=== PATIENT | male | born 1935 | race Caucasian/White ===

== ENCOUNTER 2016-09-03 15:48 | Inpatient (IN) | payer MEDICARE ==
[~2016-09-03] VITALS: Ht 177.8 cm; Wt 91.7 kg
[~2016-09-03 15:48] MED LIST: ALBU2.5V4 INHALATION; GABA-502 PO; METO50TA3 PO; MULT-1073 PO; MYCO EXTERNAL; QUE9 PO; TIOT18CA3 IH; WARF6TAB6 PO; [UNRECOGNIZED DRUG - CODE] PO
[2016-09-03 15:51] VITALS: BP 109/74; PULSE 111; RESP 18; O2SAT 98
--- NOTE | 2016-09-03 17:08 | ED.REPORT ---
HPI-General Illness Date of Service Sep 03, 2016 ED Provider: Irineo Ely MD The patient is a 81 year old male with an extensive medical history including COPD, SBO, essential tremor, CAD, DM, CKD, atrial fibrillation, and colon cancer s/p right colectomy with ileostomy who presents to the ED with abdominal pain at his ileostomy site onset 1.5 weeks ago. The patient also reports bilateral flank pain, loss of appetite, nausea, and recent weight loss. He denies hematochezia, reduced stooling, fever, chills, shortness of breath, extremity swelling, vomiting, or other symptoms. The patient was seen at the [facility] yesterday and at the [facility] today, where was found to have an elevated WBC with tachycardia (110s). The patient is on home O2. Nursing Notes Stated Complaint: ABDOMINAL/BACK PAIN-SENT BY [facility] Chief Complaint: Male Abdominal Pain Nursing Notes Reviewed: Yes Allergies: Coded Allergies: No Known Drug Allergies (Verified Allergy, Unknown, 09/03/16) Scheduled Albuterol Neb Soln (Albuterol Neb Soln) 2.5 Mg/3 Ml Vial.neb 2.5 MG INHALATION BID Cholestyramine (Cholestyramine Packet) 4 Gm Packet 2 GM PO TID Gabapentin (Gabapentin) 300 Mg Capsule 600 MG PO BID Metoprolol Tartrate (Metoprolol Tartrate) 50 Mg Tablet 50 MG PO DAILY Multivits-Min/FA/Lycopene/Lut (Centrum Silver Tablet) 1 Each Tablet 1 EACH PO DAILY Theophylline Anhydrous ER (Theophylline Anhydrous ER) 200 Mg Tab.er.12h 200 MG PO DAILY Tiotropium [place] (Spiriva) 18 Mcg Cap.w.dev 18 MCG IH DAILY Warfarin Sodium (Warfarin Sodium) 6 Mg Tablet 6 MG PO DAILY Miscellaneous Medications Nystatin (Nystatin) 20 Applic/15 Gm Oint 30 APPLIC EXT General Time Seen by MD: 17:01 Chief Complaint Abdominal pain Hx Obtained From: Patient Arrived By: Walk-in Sudden in Onset?: No Onset Occurred: 1 week ago Symptom Duration: Since onset Location: : Abdomen: Back Quality: Painful Severity: Current: Moderate Severity: Maximum: Moderate Pertinent Negative: Relieved by nothing Context Related History: Reports COPD, Reports Coronary artery disease, Reports Diabetes mellitus Recent Healthcare: Recent doctor visit Past Medical History Past Medical History Notes: PCP: Dr. Christopher Teague CODE STATUS: Would like resuscitation but no life support. Past Medical History COPD on home oxygen Small bowel obstruction 2013 Essential tremor History of colon cancer s/p right colectomy with ileostomy placement Paroxysmal atrial fibrillation Diabetes mellitus type 2 Chronic kidney disease stage III Reports: Asthma, COPD, Coronary artery disease Past Surgical History Colectomy for colon cancer with loop ileostomy 4x Bypass Reports: Appendectomy, CABG Family History Negative for colon cancer Smoking History Former Smoker Social History Drug Use: Denies drug use Other Social History: Good social support, Local resident Ambulatory Status Independent Review of Systems + Loss of appetite - Reduced stooling Full Review of Systems Constitutional: Reports: Recent wt loss, Denies: Chills, Fever Respiratory: Denies: Non-productive cough, Shortness of breath GI: Reports: Abdominal pain, Nausea, Denies: Hematochezia, Vomiting Male: Reports Flank pain (Bilateral) Musculoskeletal: Denies: Extremity swelling Complete sys rev & neg: except as marked. Physical Exam Vital Signs Vital Signs Date Time Temp Pulse Resp B/P Pulse Ox O2 Delivery O2 Flow Rate FiO2 09/03/16 18:13 85 18 145/99 99 Room Air 09/03/16 15:51 36.6 111 18 109/74 98 Nasal Cannula 3 Initial VS: Reviewed Head / Eyes: Atraumatic, Normocephalic Neck: Supple, Full range of motion Skin: Warm, Dry, No cyanosis Psychiatric: Mood/affect normal, Behavior normal, Normal thought content General/Constitutional: Awake, Alert ENT: Airway patent, Mucous membranes moist Abdomen: Soft Tenderness/Guarding/Rebound: Positive: Tender RUQ... (Worst), Tender diffuse, Negative: Tender epigastric Normal stool in ostomy Back: Atraumatic Flank / Spine / Paraspinal: Positive: Flank tender R Neurologic: Oriented X3, Speech NL Movement Abnormality: Positive: Tremor Interpretation & Diagnostics Lab Results Interpretation Result Diagram: 09/03/16 1710 09/03/16 1710 Test 09/03/16 17:08 09/03/16 17:10 Lactic Acid Level 1.5mmol/L (0.4-2.0) White Blood Count 14.3th/mm3 (3.8-10.1) Red Blood Count 4.09mil/mm3 (4.40-5.80) Hemoglobin 12.8g/dL (13.8-17.2) Hematocrit 38.9% (41.0-50.0) Mean Corpuscular Volume 95.1fL (81-100) Mean Corpuscular Hemoglobin 31.3pg (27.0-35.0) Mean Corpuscular Hemoglobin Concent 32.9% (32.0-37.0) Red Cell Distribution Width 12.6% (12.3-15.4) Platelet Count 218bil/L (150-400) Neutrophils (%) (Auto) 75.7% (40-74) Lymphocytes (%) (Auto) 10.1% (14-46) Monocytes (%) (Auto) 13.3% (4-12) Eosinophils (%) (Auto) 0.5% (0-5) Basophils (%) (Auto) 0.1% (0-3) Prothrombin Time 64.2sec (8.1-12.5) Prothromb Time International Ratio 5.79ratio Sodium Level 138mEq/L (134-144) Potassium Level 3.7mEq/L (3.5-5.2) Chloride Level 98mEq/L (97-108) Carbon Dioxide Level 22mmol/L (18-29) Blood Urea Nitrogen 29mg/dL (8-27) Creatinine 2.12mg/dL (0.76-1.27) Estimat Glomerular Filtration Rate 32mL/min (>59) Glucose Level 133mg/dL (60-99) Calcium Level 9.9mg/dL (8.5-10.1) Magnesium Level 1.7mg/dL (1.6-2.6) Total Bilirubin 1.2mg/dL (0.0-1.2) Aspartate Amino Transf (AST/SGOT) 20U/L (0-50) Alanine Aminotransferase (ALT/SGPT) 34U/L (0-44) Alkaline Phosphatase 83U/L (25-160) Total Protein 8.0g/dL (6.4-8.4) Albumin 3.3g/dL (3.4-5.0) Lipase 27U/L (13-60) Re-Eval/Medical Decision Med Decision/Clinical Course In summary, 81-year-old male with a complex past medical history including COPD, small bowel obstruction, coronary disease, atrial fibrillation, and colon cancer status post right-sided colectomy with ileostomy presenting to the ED for evaluation of abdominal pain over the past week. Unclear whether or not his right sided back/CVA pain is the same as his abdominal pain, however he has diffuse tenderness throughout his abdomen, worst in the right lower quadrant, around his ileostomy, and in the right flank. Obvious concern for some intra-abdominal pathology/abscess/small bowel obstruction etc. Labs were drawn and a CT scan was ordered. Patient was signed out to Dr. Pederson at change of shift with these studies and reevaluation pending. Discussed the plan with the patient, who is in agreement and had no further questions. Source of Hx: Old records Time of Eval: 17:45 Discharge & Departure Shift Change Sign-Out Patient Care Transferred: Yes (Dr. Pederson) Discussed Complaint(s): Yes Laboratory Evaluation: Lab evaluation discussed Imaging Studies: Ordered, not yet done Response to Therapy: Improved Primary Impression: Abdominal pain Referrals: Christopher Teague DO (PCP) Care Transferred to: Dr. Pederson Care Transferred at: 18:20 Scribe Attestation Portions of this note were transcribed by Aye Roman. I, Dr. Ely, personally performed the history, physical exam, and medical decision-making; I reviewed and confirmed the accuracy of the information in the transcribed note. Signed by: Diana Dobbs, 09/03/2016, 18:35 copies to: Christopher Teague William B MD Sep 03, 2016 17:08 AYE ROMAN Sep 03, 2016 17:14
[2016-09-03 17:23] LABS: BASOPHILS % (AUTO) 0.1 % (0-3); EOSINOPHILS % (AUTO) 0.5 % (0-5); MONOCYTES % (AUTO) 13.3 % (4-12); Mean Corpuscular Hemoglobin 31.3 pg (27.0-35.0); Mean Corpuscular Volume 95.1 fL (81-100); NEUTROPHILS % (AUTO) 75.7 % (40-74); Platelet Count 218 bil/L (150-400)
[2016-09-03 17:49] LABS: Magnesium 1.7 mg/dL (1.6-2.6)
[2016-09-03 17:55] LABS: INR 5.79 ratio
[2016-09-03 18:13] VITALS: BP 145/99; PULSE 85; RESP 18; O2SAT 99
--- NOTE | 2016-09-03 19:15 | DRSVH ---
PROCEDURE: CT ABDOMEN AND PELVIS WITH CONTRAST ([id number]) INDICATIONS: abdominal pain, hx of ileostomy TECHNIQUE: After the administration of intravenous contrast, 5 mm thick sections acquired from the diaphragm to the symphysis. 5 mm coronal and sagittal reformats were acquired. For radiation dose reduction, the following was used: automated exposure control, adjustment of mA and/or kV according to patient siz e. COMPARISON: [facility], CT, CT ABD PELVIS WO CON, 09/30/2015, 16:06. FINDINGS: Image quality: Excellent. ABDOMEN: Lung bases: Lung bases are clear except for mild interstitial prominence and suspected emphysematous change. Heart size is normal. Solid organs: Liver and spleen are normal in size and enhancement. Gallbladder appears free of infl ammation but there is a small gas bubble within the gallbladder lumen and slight pneumobilia elsewher e. Multiple surgical clips are near the pancreatic head area. Biliary system is non dilated. Pancr eas enhances normally. No adrenal nodules. Kidneys demonstrate normal size but asymmetric enhanceme nt (mildly reduced on the right), without left-sided hydronephrosis. There is, however, a right-sided hydronephrosis and hydroureter that extends inferiorly into the pelvis, where an impacted 4 mm calcu neisha is present (series 2 image 66) measuring 325 Hounsfield units this is located approximately 5 cm above the bladder ureteral insertion. There is mild perinephric and periureteral edema and mild urot helial enhancement involving the kidney and ureter on the right. Peritoneum and bowel: Bowel loops demonstrate normal wall thickness and caliber. No free fluid or a ir. Nodes and vessels: No retroperitoneal or mesenteric adenopathy by size criteria. Aorta and inferior vena cava are normal in size. Miscellaneous: No ventral hernias. PELVIS: Genitourinary: Bladder wall thickness is normal. Miscellaneous: No inguinal hernias or adenopathy. Ileostomy right lower quadrant. Bones: No suspicious bony lesions. No vertebral body compression fractures. IMPRESSION: High-grade distal right ureteral obstruction by a 4 mm stone producing mild to moderate hydronephrosis and hydroureter on the right, with urothelial enhancement and mild thickening and also hypo-enhancement to a mild degree of the right kidney. Urology consultation is recommended. The ca lculus present measures approximately 325 Hounsfield units. Right lower quadrant ileostomy, no evidence of intestinal obstruction or perforation. Mild pneumobil ia, likely related to prior surgery near the pancreatic head. Suspect underlying emphysema from the appearance of the small portion of the lower lobes included on this study. Dictated by: Hermelindo Stein M.D. on 09/03/2016 at 19:05 Approved by: Hermelindo Stein M.D. on 09/03/2016 at 19:13
[2016-09-03] MEDS ORDERED: 0.9% Sodium Chloride 500 ML IV ONE (19:25)
[2016-09-03 20:02] LABS: APPEARANCE,URINE CLEAR (CLEAR,HAZY); COLOR,URINE DARK YELLOW (YELLOW); OCCULT BLOOD,URINE SMALL (NEGATIVE); UROBILINOGEN,URINE NORMAL (NORMAL)
[2016-09-03 20:20] VITALS: BP 152/92; PULSE 80; RESP 21
[2016-09-03] MEDS: Ondansetron 2 mg/mL 2 mL Inj IVPUSH PRN (20:28)
[2016-09-03] MEDS ORDERED: cefTRIAXone Inj 2,000 MG in Dextrose 5% Minibag Plus 50 ML IV ONE (20:50)
[2016-09-03] MEDS ORDERED: Phytonadione (Adult) 10 MG in Dextrose 5%-Pha MIX 50 ML IV ONE (21:30)
[2016-09-03] MEDS ORDERED: 0.9% Sodium Chloride 100 ML ONE (21:32)
--- NOTE | 2016-09-03 21:45 | DRSVH ---
PROCEDURE: X-RAY CHEST, TWO VIEWS ([id number]) INDICATIONS: lung finding on ct TECHNIQUE: 2 views of the chest were acquired. COMPARISON: [facility], CR, CHEST 1VW (PORTABLE), 05/04/2013, 16:23. [facility], CR, XR CHEST 2VW, 04/28/2016, 11:09. [facility], CT, CT ABD PELVIS W CON, 09/03/2016 , 18:26. FINDINGS: Surgical changes and devices: Sternotomy wires, presumed prior CABG. Lungs and pleura: No pleural effusions or pneumothorax. Lungs are abnormal with a chronic interstit ial prominence and what appears to be a small degree of fibrotic change at each lung base. Mediastinum: Mediastinal contours are normal. Heart size is normal. Bones and chest wall: No suspicious bony abnormalities. Soft tissues appear unremarkable. IMPRESSION: Prior CABG, sternotomy wires, mild fibrotic change at each lung base. No underlying acu te pneumonia or neoplasm is found. Dictated by: Hermelindo Stein M.D. on 09/03/2016 at 21:41 Approved by: Hermelindo Stein M.D. on 09/03/2016 at 21:44
[2016-09-03] MEDS ORDERED: Polyethylene Glycol (PEG) 17 Gm Powder PO PRN (22:50)
[2016-09-03] MEDS ORDERED: Alum-Mag Hydrox-Simeth 30 mL Suspension PO PRN (22:50)
--- NOTE | 2016-09-03 23:01 | PCM.HPMED ---
Subjective Date of Service Sep 03, 2016 Primary Provider: Admitting Physician: Ricardo Carson MD Primary Care Physician: Jonny Attending Physician: Ricardo Carson MD Admit Status: From the Emergency Department Chief Complaint: Right back pain radiating to right inguinal area History of Present Illness: This is a 81-year-old male with past medical history significant for COPD on 3 L O2 24 hours per day, benign essential tremor, coronary artery disease s/p CABGx4, CKD stage III, atrial fibrillation on chronic anticoagulation with Coumadin, and colon cancer in remission status post right colectomy with ileostomy who presents with right sided back pain. He states the pain began approximately 1-1/2 weeks ago and radiates to his right inguinal area. The pain is described as sharp and throbbing. It is constant. It has been progressive worsening over last 2 days. He also describes some tenderness at his ileostomy site but denies any increased ostomy output or change in stool consistency. He also describes decreased appetite for one week. He has cough but no increase in sputum from baseline. He describes color of sputum as yellow. There is increased urinary frequency and some hesitancy. He denies any dysuria or hematuria, fevers, chills, shortness of breath, nausea, vomiting , chest pain or pressure. In the emergency department initial vitals were 36.6 Celsius, pulse 111, respiratory rate 18, blood pressure 109/74, satting 98% on 3 L by nasal cannula. Initial laboratory value showed WBC 14.3 with left shift, hemoglobin 12.8, hematocrit 30.9, platelets 218. BUN 29, creatinine 2.12, glucose 133, PT 64.2, INR 5.79. Lactic acid 1.5. Urinalysis showed small occult blood, no nitrates, no leukocyte esterase, no bacteria. Blood cultures are pending. CT of the abdomen and pelvis with contrast shows "high-grade distal right ureteral obstruction by 4 mm stone producing mild to moderate hydronephrosis and hydroureter on the right, with urothelial enhancement and mild thickening and also hypoenhancement to a mild degree of the right kidney. Right lower quadrant ileostomy evidence of intestinal obstruction perforation. Mild pneumobilia likely related to prior surgery near the pancreatic head." In the emergency department he was given FFP to reverse INR, ceftriaxone and a bolus of normal saline. Urology was contacted and recommended be NPO after midnight and be started on ceftriaxone. They will evaluate patient in the morning. Review of Systems: A comprehensive review of systems was conducted with the patient and found to be negative except as above in the History of Present Illness. Allergies Coded Allergies: No Known Drug Allergies (Verified Allergy, Unknown, 09/03/16) Home Medications albuterol sulfate 2.5 mg/3 mL (0.083 %) solution for nebulization 2.5 mg/3 mL ( 0.083 %) albuterol sulfate HFA 90 mcg/Actuation Aerosol Inhaler 90 mcg inhale 2 puff by INHALATION route every 4 - 6 hours as needed . Blood Glucose Monitoring kit Use to check your blood sugar daily Calcium 500 + D 500 mg (1,250 mg)-200 unit tablet 500 mg calcium (1,250 mg)-200 unit cholestyramine (with sugar) 4 gram oral powder 4 gram take 0.5-1 packet every 4- 6 hours with non-carbonated beverage. CONTOUR TEST STRIPS 100'S USE TO TEST BLOOD SUGAR TWICE DAILY gabapentin 600 mg tablet 600 mg take 1 tablet by oral route 3 times every day glimepiride 4 mg tablet 4 mg take 1 tablet by oral route every day metoprolol tartrate 50 mg tablet 50 mg TAKE 1 TABLET BY ORAL ROUTE TWICE DAILY Nitrostat 0.4 mg sublingual tablet 0.4 mg nystatin 100,000 unit/gram topical cream 100,000 unit/gram apply by topical route 3 times every day to the affected area(s) pantoprazole 20 mg tablet,delayed release 20 mg take 1 tablet by oral route every day Probiotic 10 billion cell capsule 10 billion cell Take 1 capsule 3 times a day promethazine 25 mg tablet 25 mg take 1 tablet by oral route every 4 - 6 hours as needed Spiriva with HandiHaler 18 mcg & inhalation capsules 18 mcg inhale 1 capsule ( 18MCG) by inhalation route every day . Symbicort 80 mcg-4.5 mcg/actuation HFA aerosol inhaler 80 mcg-4.5 mcg/actuation inhale 2 puff by inhalation route 2 times every day in the morning and evening Vitamin B-12 1,000 mcg tablet 1,000 mcg ascorbic acid 1,000 mg tablet 1,000 mg cholecalciferol (vitamin D3) 1,000 unit tablet 1,000 unit warfarin 2 mg tablet 2 mg take 3 tablets (6mg) by oral route every day except take 4 tablets (8mg) every Tuesday, and Tuesday PMH COPD on 3 L of oxygen as per day Small bowel obstruction in May 2013 Essential tremor Colon cancer in remission status post right colectomy with ileostomy placement 5 years ago Proximal atrial fibrillation on chronic anticoagulation with warfarin Diabetes mellitus type II Chronic kidney disease stage III COPD Coronary artery disease status post or weight bypass Hypertension Obstructive sleep apnea Surgical History Colectomy with loop ileostomy Four-way CABG in 1987 Appendectomy in 1950 Family History Mom had coronary artery disease. Dad unknown health issues.. Social History Hx Alcohol Use: No Hx Substance Use: No Hx Tobacco Use: Yes (quit 7 years ago but used to smoke 2-3 ppd x 62 yrs) Smoking Status: Former Smoker Additional Information Patient and live in modular home. Exam Vital Signs Vital Sign - Last Date Time Temp Pulse Resp B/P Pulse Ox O2 Delivery O2 Flow Rate FiO2 09/03/16 20:20 36.9 80 21 152/92 Nasal Cannula 3 09/03/16 18:13 99 Exam General: No acute distress, appropriately interactive HEENT: Normocephalic, atraumatic. External ears without defect. Pupils equal, round, and reactive to light and accommodation. Anicteric sclerae, moist conjunctivae, and no lid lag. Oropharynx free of erythema and cobble stoning with moist mucosa. Neck: Supple with full range of motion. No jugular venous distension. No bruits. No lymphadenopathy or thyromegaly. Cardiovascular: Regular rate and rhythm with no murmurs, rubs, or gallops appreciated Pulmonary: Crackles present at bases of lungs bilaterally. No wheezes or rhonchi. Normal respiratory effort with no use of accessory muscles. Abdomen: Bowel tones present. Mild tenderness around ileostomy site. Ileostomy site covered and there is no surrounding erythema. No hepatosplenomegaly or masses appreciated. : There is tenderness to palpation of right costovertebral angle. Extremities: Trace edema bilaterally lower extremities. Skin: Normal temperature, turgor, and texture; no rash, ulcers, or subcutaneous nodules appreciated. Neurological: Cranial nerves grossly intact. Psychiatric: Normal mood and affect. Alert and oriented to person, place, and time. Lab and Diagnostics Result Diagram: 09/03/16 17109/03/16 171 X-Rays, CTs and MRIs CT of the abdomen and pelvis with contrast 09/03/2016: IMPRESSION: High-grade distal right ureteral obstruction by a 4 mm stone producing mild to moderate hydronephrosis and hydroureter on the right, with urothelial enhancement and mild thickening and also hypo-enhancement to a mild degree of the right kidney. Urology consultation is recommended. The calculus present measures approximately 325 Hounsfield units. Right lower quadrant ileostomy, no evidence of intestinal obstruction or perforation. Mild pneumobilia, likely related to prior surgery near the pancreatic head. Suspect underlying emphysema from the appearance of the small portion of the lower lobes included on this study. Dictated by: Hermelindo Stein M.D. on 09/03/2016 at 19:05 Chest x-ray on 09/03/2016: IMPRESSION: Prior CABG, sternotomy wires, mild fibrotic change at each lung base. No underlying acute pneumonia or neoplasm is found. Dictated by: Hermelindo Stein M.D. on 09/03/2016 at 21:41 Assessment & Plan This is a 81-year-old male with history significant for COPD on 3l home oxygen, CAD, atrial fibrillation, CKD stage III, and colon cancer in remission s/p right colectomy with ileostomy who presents with right costovertebral angle pain that radiates the inguinal area. CT scan in the emergency department showed a high-grade distal right ureteral obstruction by 4 mm stone producing mild to moderate hydronephrosis and hydroureter on the right. In the emergency department Dr. Peguero of urology was contacted and stated that he will evaluate patient in morning. He asked for ceftriaxone to be started and keep the patient NPO after midnight. Right high-grade distal right ureteral obstruction by 4 mm stone with hydronephrosis, present admission, ongoing: -Patient will be kept nothing by mouth after midnight per Dr. Peguero -Urology will evaluate in the morning -Normal saline at 100 mL per hour -Ceftriaxone started. -Blood cultures pending Elevated INR, present on admission, ongoing: -On admit PT 64.2 and INR 5.79. -Fresh frozen plasma given in emergency department -We will repeat PT/INR in a.m. and consider giving additional FFP if elevated. -Day team will need to clarify goals of urology concerning INR. -CBC in a.m. Acute kidney injury on chronic kidney disease, present admission, ongoing: -BUN and creatinine on 10/08/2015 was 16 and 1.69 respectively. On admit today BUN 29 and creatinine 2.12 -This is likely secondary to obstructing stone. Patient also received IV contrast due to imaging as well. -Normal saline at 100 mL per hour -CMP in a.m. Diabetes mellitus type II, present admission, stable: -Glucose on admission 133. -A1c pending. -We will hold home medications for now. -Humalog low-dose correctional added. COPD, present admission, ongoing: -Continue on O2 overnight, 3 L. -Continue on albuterol, Symbicort, Spiriva. Ileostomy tenderness, present on admission, ongoing: -No increased ostomy output or change in consistency of stool. -Continue to follow in a.m. -Continue cholestyramine Atrial fibrillation on chronic anti-coagulation, present on admission, ongoing: -Warfarin has been stopped due to elevated INR. -Continue metoprolol tartrate. Coronary disease status post CABG, present on admission, ongoing: -Patient is an beta jennifer. -Consider MARIAH inhibitor and statin as an outpatient. Med req not yet complete by nursing. Will leave for day to complete. DVT prophylaxis with SCDs. Patient's INR is currently 5.79. Patient is admitted under inpatient status with expected length of stay greater than 2 midnights due to severity of presenting symptoms, risk of adverse event, and complexity of treatment plan. Pain Evaluation: Adequate Pain Control Resuscitation Status: CPR: Attempt Resuscitation Attending Statement The patient was seen and examined together with Dr. Lipscomb on 09/03 and I agree with the history, exam and plan as outlined in the note above. Fer Lipscomb DO Sep 03, 2016 23:01 Ricardo Carson MD Sep 04, 2016 03:47
[2016-09-03 23:45] VITALS: BP 185/81; PULSE 86; RESP 24; O2SAT 99
[2016-09-04] VITALS (11 sets, daily range): BP systolic 133–156; BP diastolic 72–80; PULSE 48–84; RESP 18–24; O2SAT 97–99
[2016-09-04] MEDS: Ondansetron 2 mg/mL 2 mL Inj IVPUSH PRN ×2 (00:22→20:05)
--- NOTE | 2016-09-04 01:40 | NUR ---
ADMIT NOTE Pt arrived to [facility] 3029 approx 2320. Pt alert and oriented. Pt placed on remote telemetry. Pt aware on NPO status, for possible procedure, no definite orders for procedure at this time. Pt has dull ache at stoma site to right side of back. Pt on 3L oxygen via [place], humidified and oxygen extension tubing provided. Pt uses 3L at home. Pt states "I haven't used my CPAP in about a year, because it smells like burnt wires." Pt placed on CPOx. VS obtained. 2 units of FFP administered. Continue to monitor. Pt has colostomy, emptied upon arrival to [facility] [place] [facility]. Ostomy cart outside of room. Call light in reach. Bed alarm on. Intentional rounding
[2016-09-04] MEDS ORDERED: Glucose 40% Oral Gel 15 Gm Tube PO PRN (01:55)
--- NOTE | 2016-09-04 01:56 | NUR ---
MED REC NOT COMPLETED Pt did not bring in list of current medications. Pt unable to recall medication, but states he takes "a pill for my diabetes." Pt also states "yes" to using nebulizers and inhalers at home. Request will be sent to pts pharmacy in am for current list.
[2016-09-04] MEDS ORDERED: Dextrose 10% 250 ML IV PRN (02:00)
[2016-09-04] MEDS: 0.9% Sodium Chloride 1,000 ML IV SCH ×3 (02:14→21:47)
[2016-09-04 06:18] LABS: BASOPHILS % (AUTO) 0.2 % (0-3); EOSINOPHILS % (AUTO) 2.1 % (0-5); Mean Corpuscular Hemoglobin 30.8 pg (27.0-35.0); Mean Corpuscular Volume 96.5 fL (81-100); Platelet Count 207 bil/L (150-400)
[2016-09-04 06:30] LABS: INR 1.38 ratio
[2016-09-04] MEDS: Insulin LISPRO 300 Unit/3 mL Inj SUBQ SCH ×4 (07:41→22:00)
[2016-09-04] MEDS: HYDROcodone-APAP 5-325 mg Tablet PO PRN ×2 (07:41→17:06)
[2016-09-04] MEDS ORDERED: PANT20TA2 PO (09:46)
[2016-09-04] MEDS ORDERED: POTA99TA7 PO (09:46)
[2016-09-04] MEDS ORDERED: CHOL100045 PO (09:46)
[2016-09-04] MEDS ORDERED: MONT10TA23 PO (09:46)
[2016-09-04] MEDS ORDERED: CYAN500L4 PO (09:46)
[2016-09-04] MEDS ORDERED: ASCO-294 PO (09:46)
[2016-09-04] MEDS ORDERED: PRED1DRO BOTH_EYES (09:46)
[2016-09-04] MEDS ORDERED: OFLO5DRO5 RIGHT_EYE (09:46)
[2016-09-04] MEDS ORDERED: [UNRECOGNIZED DRUG - CODE] PO (09:46)
[2016-09-04] MEDS ORDERED: GLIM4TAB2 PO (09:46)
[2016-09-04] MEDS ORDERED: KETO5DRO80 BOTH_EYES (09:46)
--- NOTE | 2016-09-04 10:33 | NUR ---
Social Work-initial assessment: Data:See initial assessment. Pt is a 81 y/o male who was admitted on 09/03/16 for RT ureteral stone per H&P. Pt's insurance is [employer] and PCP is Dr. Garcia at [facility]. EMR reviewed. SW met with pt at bedside to discuss discharge planning, SW role explained. Pt is alert and oriented x3. Pt resides at home with his in [place] where he remains independent with basic ADls. Pt and live in single level mobile home with ramp to enter. Pt uses a cane outside of the home and drives. Pt has no HH or SNF history. Pt lentz no senior living care or VA benefits. SW discussed DPOA/ advanced directive, pt confirms they have not completed this, SW encouraged a copy to be brought in. Pt is on O2 at home through [employer]. Per MD in morning rounds, pt to go to the OR today. SW to await MD orders for needs. SW provided phone number and plan on white board in room. SW will continue to follow. Assessment:pt who is independent at baseline. Plan:pt to likely discharge home when medically stable. SW to follow for needs and await MD orders. SW will continue to follow. HARDEEP Maloney Addendum: 09/04/16 at 1037 by WOOD COLEMAN Amended: Links added.
[2016-09-04] MEDS ORDERED: WARF2TAB7 PO (11:06)
[2016-09-04] MEDS ORDERED: ALBU2.5V4 INHALATION (11:06)
[2016-09-04] MEDS ORDERED: SYMINH INHALATION (11:06)
[2016-09-04] MEDS ORDERED: TIOT18CA3 IH (11:06)
[2016-09-04] MEDS ORDERED: PRIM50TA PO (11:06)
--- NOTE | 2016-09-04 12:13 | NUR ---
Case Management- IMM explained and signed. Original placed in chart. Copy given to patient. Yanely IRELAND/YUDELKA
[2016-09-04] MEDS: HYDROmorphone 0.5 mg/0.5 mL iSecure Syringe IVPUSH PRN ×2 (14:26→22:19)
--- NOTE | 2016-09-04 15:08 | CONS ---
[address] [address] CONSULTATION REPORT PATIENT: DIAZ YOU : 1935 MR#: [id number] ADMIT: 09/03/2016 JOB ID: [id number] DATE OF SERVICE: 09/04/2016 CHIEF COMPLAINT: Right back flank and groin pain, right ureteral calculus, right hydronephrosis. HISTORY OF PRESENT ILLNESS: I was asked by ED Dr. Onelia Pederson to evaluate this 81-year-old male for right back, flank and groin pain, right ureteral calculus and right hydronephrosis. The patient states he started having right back pain radiating to the right flank and right groin. The patient stated he started having right back pain radiating to the flank and groin about 1-1/2 weeks ago with pain worsening over the last two days. The patient reports occasional nausea with no vomiting. The patient states he has not been having any fever and again no vomiting. The patient reports no dysuria, no gross hematuria, urinary frequency every 1 hour, urinary urgency. The patient reports no prior history of nephrolithiasis. The patient presented to the emergency department yesterday afternoon and had a CT scan of the abdomen and pelvis with IV contrast last night showing [id number] right hydroureteronephrosis down to a 4 mm right distal ureteral calculus, mild right perinephric and periureteral edema, mild urothelial enhancement and thickening in the right kidney and right ureter and no lymphadenopathy. The patient was found to have mildly elevated white blood cell count of 14.3, an elevated creatinine of 2.12, also elevated PT 64.2, and elevated INRs of 5.79. The patient was given vitamin K and FFP last night. The patient was admitted by hospitalist, Dr. Ricardo Carson last night. The patient was started on ceftriaxone IV and IV fluid hydration in the emergency department, and this was continued overnight. When I saw the patient at mid day today, the patient states he has been having right back, flank and groin pain which was relieved by p.o. [place] this morning with no nausea or vomiting presently. PAST MEDICAL HISTORY: 1. COPD on home oxygen. 2. History of small bowel obstruction. 3. Essential tremor. 4. Colon cancer. 5. Atrial fibrillation on chronic anticoagulation with Coumadin. 6. Diabetes mellitus. 7. Chronic kidney disease. 8. Coronary artery disease. 9. Hypertension. 10. Obstructive sleep apnea. PAST SURGICAL HISTORY: 1. Colectomy with loop ileostomy. 2. Coronary artery bypass graft. 3. Appendectomy. MEDICATIONS: Present hospital medications: 1. Ceftriaxone IV. 2. Insulin. 3. Maalox p.r.n. 4. Zofran p.r.n. 5. Senokot p.r.n. 6. MiraLAX p.r.n. 7. Tylenol p.r.n. 8. [place] p.r.n. ALLERGIES: No known drug allergies. SOCIAL HISTORY: No alcohol use. Quit smoking seven years ago. No drug use. FAMILY HISTORY: Noncontributory. REVIEW OF SYSTEMS: Constitutional: No fever, no chills. GI: Positive for nausea with no nausea presently. No vomiting. PHYSICAL EXAMINATION: Vital signs: Afebrile since admission yesterday. Temperature presently 36.6 degrees Celsius, heart rate 51, respiratory rate 20, BP 139/72, O2 saturation 98% on 3 L nasal cannula. General: Well-developed, well-nourished male in no acute distress. HEENT examination: Head normocephalic, atraumatic. Eyes: Extraocular muscles intact. Neck: Supple. Chest: No use of accessory muscles. Nonlabored respirations. No retractions. Abdomen: Soft, nondistended, nontender. No palpable masses. Ileostomy in the right abdomen with stool in the distal ileostomy bag. Back: No costovertebral angle tenderness. examination: Penis normal. No lesions. Urethral meatus normal. Testes bilaterally descended. No masses. Scrotum normal. Skin: Warm and dry. Neurologic examination: Sensation grossly intact to touch. Normal speech. Psych examination: Alert and oriented x3. Normal mood and affect. LABORATORIES: Yesterday white blood cell count 14.3, creatinine 2.12. Lactic acid within normal limits at 1.5. PT 64.2, PTT 64.2. INR 5.79. Urinalysis 0-2 red blood cells, 0-5 white blood cells, negative nitrite, negative leukocyte esterase. Blood cultures pending this morning. Laboratories this morning: White blood cell count 12.7, hematocrit 35.7, platelets 207. Sodium 142, potassium 3.8, chloride 102, CO2 25, BUN 26, creatinine 1.94, glucose 100. PT 14.9, INR 1.38. Baseline creatinine of 0.99 on March 22, 2016. IMAGING: CT scan of the abdomen and pelvis with IV contrast as per HPI. ASSESSMENT: Right back, flank and groin pain and nausea secondary to a 4 mm right distal ureteral calculus and [id number] right hydroureteronephrosis with CT scan also showing mild right perinephric and periureteral edema and mild urothelial enhancement and thickening in the right kidney and ureter with leukocytosis with white blood cell count improving from 14.3 yesterday down to 12.7 this morning with renal insufficiency with creatinine improved from 2.12 down to 1.94 this morning (despite receiving IV contrast with a CT scan last night) with pain controlled on pain medications with an improved nausea with no signs of sepsis. Risks, benefits and alternatives of medical management versus surgery, specifically cystoscopy, right ureteral stent placement, possible right ureteroscopy, possible holmium laser lithotripsy, and possible basket extraction of calculus, were discussed with the patient. All questions were answered. The patient opts for medical management at this time as recommended. If the patient had surgery in the future, would perform cystoscopy and right ureteral stent placement if there were signs of infection and would treat the right ureteral stone if there were no signs of infection intraoperatively. PLAN: 1. Recommend continuing IV fluid hydration. 2. Recommend continuing broad-spectrum IV antibiotics with ceftriaxone. 3. Recommend pain medications and antiemetics p.r.n. 4. Recommend starting Flomax 0.4 mg p.o. daily which I have ordered. 5. Recommend straining all urine. The patient can be given diet today. Will make the patient n.p.o. after midnight tonight in case surgery is needed to be done tomorrow. 6. Recommend following labs including white blood cell count and creatinine and electrolytes. 7. Would consider repeat CT scan in the future. 8. The patient's case was discussed with hospitalist, Dr. Irvin Lenz. 9. I will re-evaluate the patient tomorrow.
[2016-09-04] MEDS: cefTRIAXone Inj 2,000 MG in Dextrose 5% Minibag Plus 50 ML IV SCH (18:13)
--- NOTE | 2016-09-04 20:28 | PCM.PNMED ---
Subjective Date of Service Sep 04, 2016 Subjective Patient still having flank pain. No chest pain dyspnea or nausea and vomiting Exam Vital Signs Vital Sign - Last Date Time Temp Pulse Resp B/P Pulse Ox O2 Delivery O2 Flow Rate FiO2 09/04/16 20:20 36.5 60 18 147/77 99 Nasal Cannula 3.00 Intake and Output 09/03/16 09/03/16 09/04/16 Cumulative From/Thru 15:00 23:00 07:00 09/03/16 15:51 - 09/04/16 06:37 Intake Total 1000 ml 675 ml 1675 ml Output Total 200 ml 200 ml Balance 1000 ml 475 ml 1475 ml Intake Oral 0 ml 0 ml IV Total 1000 ml 232 ml 1232 ml FFP 443 ml 443 ml Output Urine Total 200 ml 200 ml # Bowel Movements 1 1 Exam General: No acute distress, appropriately interactive HEENT: Normocephalic, atraumatic. External ears without defect. Pupils equal, round, and reactive to light and accommodation. Anicteric sclerae, moist conjunctivae, and no lid lag. Neck: Supple with full range of motion. No jugular venous distension. Cardiovascular: Regular rate and rhythm Pulmonary: Normal respiratory effort with no use of accessory muscles. Abdomen: Flat Extremities: Trace edema bilaterally lower extremities. Skin: Normal temperature, turgor, and texture; no rash, ulcers, or subcutaneous nodules appreciated. Neurological: Cranial nerves grossly intact. , Nonfocal Psychiatric: Normal mood and affect. Alert and oriented to person, place, and time. Lab and Diagnostics Result Diagram: 09/04/16 0606 09/04/16 0606 X-Rays, CTs and MRIs CT of the abdomen and pelvis with contrast 09/03/2016: IMPRESSION: High-grade distal right ureteral obstruction by a 4 mm stone producing mild to moderate hydronephrosis and hydroureter on the right, with urothelial enhancement and mild thickening and also hypo-enhancement to a mild degree of the right kidney. Urology consultation is recommended. The calculus present measures approximately 325 Hounsfield units. Right lower quadrant ileostomy, no evidence of intestinal obstruction or perforation. Mild pneumobilia, likely related to prior surgery near the pancreatic head. Suspect underlying emphysema from the appearance of the small portion of the lower lobes included on this study. Dictated by: Hermelindo Stein M.D. on 09/03/2016 at 19:05 Chest x-ray on 09/03/2016: IMPRESSION: Prior CABG, sternotomy wires, mild fibrotic change at each lung base. No underlying acute pneumonia or neoplasm is found. Dictated by: Hermelindo Stein M.D. on 09/03/2016 at 21:41 Assessment & Plan This is a 81-year-old male presents with right costovertebral angle pain that radiates the inguinal area 09/03. 09/04 first time meeting medically complex male I renewed all his medications as med rec and not been done. In reorder labs. We have had discussion with Dr. Peguero urology, plan is to avoid operating and hope that he passes the stone on his own. He will be kept nothing by mouth again overnight in the event that perhaps he should go to the OR. I think he is medically optimized but in general a frail patient that is not optimal to be brought to the OR even on the good day. That said if he needs to go he is medically as optimized as I think he can be. He has been told by both his manager inventory and his metal fabricator apprentice that he should not have his ostomy reversed due to the cardiopulmonary risk. Right high-grade distal right ureteral obstruction by 4 mm stone with hydronephrosis, present admission, ongoing: -Patient will be kept nothing by mouth after midnight per Dr. Peguero again in 09/04 -Urology will evaluate in the morning -Normal saline at 100 mL per hour -Ceftriaxone started. -Blood cultures pending Elevated INR, present on admission, ongoing: -On admit PT 64.2 and INR 5.79. -Fresh frozen plasma given in emergency department -We will repeat PT/INR in a.m. INR 1.38 09/04 -CBC in a.m. Acute kidney injury on chronic kidney disease, present admission, ongoing: -BUN/cr 12/0.99 03/2016. 29/ 2.12 09/03, Cr 1.9 09/04 -This is likely secondary to obstructing stone. Patient also received IV contrast due to imaging as well. -Normal saline at 100 mL per hour -CMP in a.m. Diabetes mellitus type II, present admission, stable: -Glucose on admission 133. -A1c pending. -We will hold home medications for now. -Humalog low-dose correctional added. COPD, present admission, ongoing: -Continue on O2 overnight, 3 L. -Continue on albuterol, Symbicort, Spiriva. Ileostomy tenderness, present on admission, ongoing: -No increased ostomy output or change in consistency of stool. -Continue to follow in a.m. -Continue cholestyramine Atrial fibrillation on chronic anti-coagulation, present on admission, ongoing: -Warfarin has been stopped due to elevated INR. -Continue metoprolol tartrate. Coronary disease status post CABG, present on admission, ongoing: -Patient is an beta jennifer. -Consider MARIAH inhibitor and statin as an outpatient. . Resuscitation Status: CPR: Attempt Resuscitation Irvin Lenz MD Sep 04, 2016 20:28
[2016-09-04] MEDS ORDERED: Budesonide-Formot 160-4.5 mCg 6.9 Gm Inhaler INHALATION SCH (20:30)
[2016-09-04] MEDS: Albuterol 2.5 mg/3 mL Inhalation Solution NEB SCH (20:30)
[2016-09-04] MEDS ORDERED: Albuterol 2.5 mg/3 mL Inhalation Solution NEB PRN (20:30)
[2016-09-04] MEDS: Fluticasone-Salmererol 250-50 Inhaler INHALATION SCH (21:46)
[2016-09-04] MEDS: Cholestyramine Resin Powder 4 Gm Packet PO SCH (21:46)
[2016-09-05 00:13] VITALS: BP 153/74; PULSE 57; RESP 18; O2SAT 99
[2016-09-05] MEDS: HYDROmorphone 0.5 mg/0.5 mL iSecure Syringe IVPUSH PRN (04:23)
[2016-09-05 04:26] VITALS: BP 161/83; PULSE 72; RESP 18; O2SAT 97
--- NOTE | 2016-09-05 04:44 | NUR ---
Noc/Urine straining Pt has been alert and oriented. Reports of abdominal pain sometimes but is controlled by PRN Dil[place]ed. No obvious stones observed upon straining of urine thoughout the shift. Reports of abdominal pain throught but has been contolled by percocet. Pt has been npo since midnight. Explained to pt about the plan for possible upcoming procedure. Pt verbalizes understanding. Hourly rounding in effect, HS meds administered and insulin per sliding scale.
[2016-09-05 06:15] VITALS: PULSE 72
[2016-09-05 06:30] LABS: BASOPHILS % (AUTO) 0.2 % (0-3); EOSINOPHILS % (AUTO) 4.1 % (0-5); MONOCYTES % (AUTO) 14.1 % (4-12); Mean Corpuscular Hemoglobin 30.9 pg (27.0-35.0); Mean Corpuscular Volume 96.3 fL (81-100); NEUTROPHILS % (AUTO) 72.2 % (40-74); Platelet Count 226 bil/L (150-400)
[2016-09-05 06:48] LABS: INR 1.08 ratio
[2016-09-05] MEDS: Insulin LISPRO 300 Unit/3 mL Inj SUBQ SCH ×4 (08:00→21:46)
[2016-09-05] MEDS: Ondansetron 2 mg/mL 2 mL Inj IVPUSH PRN (08:00)
[2016-09-05] MEDS: Albuterol 2.5 mg/3 mL Inhalation Solution NEB SCH ×2 (08:30→20:30)
[2016-09-05 08:54] VITALS: BP 150/81; PULSE 77; RESP 18; O2SAT 96
[2016-09-05] MEDS: 0.9% Sodium Chloride 1,000 ML IV SCH ×3 (09:30→21:50)
[2016-09-05] MEDS: Tiotropium 18mcg/Cap 5 Capsule Inhaler Kit INHALATION SCH (09:31)
[2016-09-05] MEDS: Fluticasone-Salmererol 250-50 Inhaler INHALATION SCH ×2 (09:31→20:37)
[2016-09-05] MEDS: Calcium Carbonate (Oyster Shell) 500 mg Tablet PO SCH (09:33)
[2016-09-05] MEDS: Ascorbic Acid 500 mg Tablet PO SCH (09:33)
[2016-09-05] MEDS: Cholestyramine Resin Powder 4 Gm Packet PO SCH ×3 (09:40→20:37)
--- NOTE | 2016-09-05 12:15 | PCM.PNSURG ---
Subjective Date of Service: Sep 05, 2016 Date of Service: Sep 05, 2016 Subjective: Patient reports improved R back/flank/groin pain (relieved by PO [place]), improved nausea (last had this AM, with no nausea presently), no vomiting, tolerating full PO, no difficulty voiding, no gross hematuria, improved fatigue. Patient has not seen a stone in the urine. Objective Vital Sign- Last 8 Hours Date Time Temp Pulse Resp B/P Pulse Ox O2 Delivery O2 Flow Rate FiO2 09/05/16 08:54 36.7 77 18 150/81 96 Nasal Cannula 3.00 09/05/16 08:20 Supplement Oxygen 09/05/16 06:15 72 09/05/16 04:26 36.8 72 18 161/83 97 Nasal Cannula 3.00 Intake and Output- Last 8 Hour 09/05/16 Cumulative From/Thru 07:00 09/03/16 15:51 - 09/05/16 06:27 Intake Total 1639 ml 5151 ml Output Total 320 ml 770 ml Balance 1319 ml 4381 ml Intake Oral 300 ml 936 ml IV Total 1339 ml 3742 ml FFP 443 ml Tube Irrigant 30 ml Output Urine Total 320 ml 770 ml # Bowel Movements 1 4 Voided urine output: 320ml last 8hr. shift General: Alert, Oriented X3, Cooperative, No Acute Distress Neck: Supple Lungs: Normal Air Movement Abdomen: Soft, Non-tender, Non-distended, Other (no rebound or guarding; Back : no costovertebral angle tenderness) Neuro: Normal Speech, Sensation Intact Catheters: None Result Diagram: 09/05/1661409/05/16614 Lab & Micro Results: Blood Cx (09/03/16): negative to date Assessment & Plan Impression R back, flank, and groin pain and nausea, with CT showing 4mm R distal ureteral calculus, mild-moderate R hydroureteronephrosis, mild R perinephric and periureteral edema, and mild urothelial enhancement and thickening in R kidney and ureter, with improved pain (presently controlled by PO [place]) and improved nausea, with labs this AM showing Cr improved from 1.94 to 1.57 (despite receiving IV contrast with CT on 09/03) and WBC slightly improved from 12.7 to 12.6, remains afebrile and hemodynamically stable. Recommended continuing medical management, which patient agreed with. Problems: Plan Recommend continuing pain meds, Flomax, IV and/or PO fluid hydration, broad- spectrum IV antibiotics (Ceftriaxone), and straining all urine Recommend continuing to follow labs (including WBC, Cr, and lytes) If WBC and Cr continue to improve, pain continues to be controlled by PO pain meds, and patient continues to be able to tolerate PO, patient can be discharged home. When patient is discharged home, recommend that patient be discharged home on Flomax, pain meds, and Abx (i.e. Cipro)(to complete a 14-day course of Abx) and with instructions to strain his urine and drink at least 10- 12 8oz. glasses (3 liters) of fluids per day, and recommend that patient follow- up with me in the office approx. 1 week after discharge (with a KUB X-ray 1 hour prior to appt.). Coumadin can be re-started on discharge. Would consider repeat CT in the future (as an outpatient). VTE Prophylaxis: SCDs Resuscitation Status: CPR: Attempt Resuscitation George Peguero MD Sep 05, 2016 12:15
[2016-09-05] MEDS: Pantoprazole 20 mg ER24 Tablet PO SCH (12:22)
[2016-09-05] MEDS: HYDROcodone-APAP 5-325 mg Tablet PO PRN ×2 (12:45→19:22)
[2016-09-05 13:47] VITALS: BP 130/67; PULSE 59; RESP 16; O2SAT 97
[2016-09-05] MEDS: cefTRIAXone Inj 2,000 MG in Dextrose 5% Minibag Plus 50 ML IV SCH (18:09)
--- NOTE | 2016-09-05 18:26 | NUR ---
Pain Pt has been resting most of the day, in the afternoon pt c/o of RUQ pain 10/11 gave PRN [place], with good relief. Pt is currently resting comfortably in bed with call light within reach, bed low and locked, intentional rounding.
--- NOTE | 2016-09-05 18:49 | PCM.PNMED ---
Subjective Date of Service Sep 05, 2016 Subjective Patient still having some flank pain. This dissipating. No chest pain, no dyspnea, no nausea or vomiting Exam Vital Signs Vital Sign - Last Date Time Temp Pulse Resp B/P Pulse Ox O2 Delivery O2 Flow Rate FiO2 09/05/16 13:47 36.5 59 16 130/67 97 Nasal Cannula 3.00 Intake and Output 09/04/16 09/04/16 09/05/16 Cumulative From/Thru 15:00 23:00 07:00 09/03/16 15:51 - 09/05/16 06:27 Intake Total 1837 ml 1639 ml 5151 ml Output Total 250 ml 320 ml 770 ml Balance 1587 ml 1319 ml 4381 ml Intake Oral 636 ml 300 ml 936 ml IV Total 1171 ml 1339 ml 3742 ml FFP 443 ml Tube Irrigant 30 ml 30 ml Output Urine Total 250 ml 320 ml 770 ml # Bowel Movements 2 1 4 Exam General: No acute distress, appropriately interactive HEENT: Normocephalic, atraumatic. External ears without defect. Pupils equal, round, and reactive to light and accommodation. Anicteric sclerae, moist conjunctivae, and no lid lag. Neck: Supple with full range of motion. No jugular venous distension. Cardiovascular: Regular rate and rhythm Pulmonary: Normal respiratory effort with no use of accessory muscles. Abdomen: Flat Extremities: Trace edema bilaterally lower extremities. Skin: Normal temperature, turgor, and texture; no rash, ulcers, or subcutaneous nodules appreciated. Neurological: Cranial nerves grossly intact. , Nonfocal Psychiatric: Normal mood and affect. Alert and oriented to person, place, and time. Lab and Diagnostics Result Diagram: 09/05/1661409/05/1615 X-Rays, CTs and MRIs CT of the abdomen and pelvis with contrast 09/03/2016: IMPRESSION: High-grade distal right ureteral obstruction by a 4 mm stone producing mild to moderate hydronephrosis and hydroureter on the right, with urothelial enhancement and mild thickening and also hypo-enhancement to a mild degree of the right kidney. Urology consultation is recommended. The calculus present measures approximately 325 Hounsfield units. Right lower quadrant ileostomy, no evidence of intestinal obstruction or perforation. Mild pneumobilia, likely related to prior surgery near the pancreatic head. Suspect underlying emphysema from the appearance of the small portion of the lower lobes included on this study. Dictated by: Hermelindo Stein M.D. on 09/03/2016 at 19:05 Chest x-ray on 09/03/2016: IMPRESSION: Prior CABG, sternotomy wires, mild fibrotic change at each lung base. No underlying acute pneumonia or neoplasm is found. Dictated by: Hermelindo Stein M.D. on 09/03/2016 at 21:41 Assessment & Plan This is a 81-year-old male presents with right costovertebral angle pain that radiates the inguinal area 09/03. 09/04 first time meeting medically complex male I renewed all his medications as med rec and not been done. In reorder labs. We have had discussion with Dr. Peguero urology, plan is to avoid operating and hope that he passes the stone on his own. He will be kept nothing by mouth again overnight in the event that perhaps he should go to the OR. I think he is medically optimized but in general a frail patient that is not optimal to be brought to the OR even on the good day. That said if he needs to go he is medically as optimized as I think he can be. He has been told by both his cardiovascular tech and his support clerk that he should not have his ostomy reversed due to the cardiopulmonary risk. 09/05 renal function continues to improve, he still having pain but it is manageable. INR has been corrected in the event that he needs an intervention I am not resuming warfarin yet. Blood sugar continues to be well controlled. Despite his multiple complex medical issues Right high-grade distal right ureteral obstruction by 4 mm stone with hydronephrosis, present admission, ongoing: -Urology following -Normal saline at 100 mL per hour -Ceftriaxone 09/05- -Blood cultures from 09/03 still -09/04, UA was clear Elevated INR, present on admission, ongoing: -On admit PT 64.2 and INR 5.79. -Fresh frozen plasma given in emergency department -We will repeat PT/INR in a.m. INR 1.38 09/04 -CBC in a.m. Acute kidney injury on chronic kidney disease, present admission, ongoing: -BUN/cr 12/0.99 03/2016. 29/ 2.12 09/03, Cr 1.9 09/04 -This is likely secondary to obstructing stone. Patient also received IV contrast due to imaging as well. -Normal saline at 100 mL per hour -BMP in a.m. Diabetes mellitus type II, present admission, stable: -Glucose on admission 133. -A1c pending. -We will hold home medications for now. -Humalog low-dose correctional added. COPD, present admission, ongoing: -Continue on O2 overnight, 3 L. -Continue on albuterol, Symbicort, Spiriva. Ileostomy tenderness, present on admission, ongoing: -No increased ostomy output or change in consistency of stool. -Continue to follow in a.m. -Continue cholestyramine Atrial fibrillation on chronic anti-coagulation, present on admission, ongoing: -Warfarin has been stopped due to elevated INR. -Continue metoprolol tartrate. Coronary disease status post CABG, present on admission, ongoing: -Patient is an beta jennifer. -Consider MARIAH inhibitor and statin as an outpatient. . VTE Prophylaxis: SCDs Resuscitation Status: CPR: Attempt Resuscitation Irvin Lenz MD Sep 05, 2016 18:49
[2016-09-05 21:23] VITALS: BP 150/78; PULSE 71; RESP 16; O2SAT 99
[2016-09-06 05:39] VITALS: BP 160/82; PULSE 66; RESP 16; O2SAT 96
--- NOTE | 2016-09-06 05:47 | NUR ---
Noc/Urine strained Pt has been urinating well on urinal. This RN and LYE MACHINE OPERATOR has been straining pt's urine for stones but none noted throughout the shift. Denies chest pain, sob, n/v or abd discomfort. PT's VSS and has been afebrile. Currently on 3LPM nasal canula and has been saturating well. Intentional hourly rounding done and pt's has slept most of the night.
[2016-09-06] MEDS: HYDROcodone-APAP 5-325 mg Tablet PO PRN (06:16)
[2016-09-06 07:15] LABS: Mean Corpuscular Hemoglobin 31.6 pg (27.0-35.0); Mean Corpuscular Volume 96.1 fL (81-100); Platelet Count 250 bil/L (150-400)
[2016-09-06] MEDS: Pantoprazole 20 mg ER24 Tablet PO SCH (07:56)
[2016-09-06] MEDS: Ascorbic Acid 500 mg Tablet PO SCH (07:56)
[2016-09-06] MEDS: 0.9% Sodium Chloride 1,000 ML IV SCH (07:58)
[2016-09-06] MEDS: Tiotropium 18mcg/Cap 5 Capsule Inhaler Kit INHALATION SCH (07:59)
[2016-09-06] MEDS: Calcium Carbonate (Oyster Shell) 500 mg Tablet PO SCH (07:59)
[2016-09-06] MEDS: Fluticasone-Salmererol 250-50 Inhaler INHALATION SCH (07:59)
[2016-09-06] MEDS: Cholestyramine Resin Powder 4 Gm Packet PO SCH (08:00)
[2016-09-06] MEDS: Insulin LISPRO 300 Unit/3 mL Inj SUBQ SCH ×2 (08:00→12:00)
[2016-09-06 08:06] LABS: MONOCYTES % (AUTO) 19 % (4-12); NEUTROPHILS % (AUTO) 56 % (40-74)
[2016-09-06 08:07] LABS: BASOPHILS % (AUTO) 1 % (0-3); EOSINOPHILS % (AUTO) 4 % (0-5)
[2016-09-06] MEDS: Albuterol 2.5 mg/3 mL Inhalation Solution NEB SCH (08:30)
--- NOTE | 2016-09-06 12:39 | PCM.DIMED ---
Discharge Instructions Date of Service Sep 06, 2016 Dates of Hospitalization Sep 03, 2016 at 22:19 Discharge Diagnosis Discharge Diagnosis Right-sided kidney stone,hydroureter and moderate hydronephrosis Diet Discharge Diet: Heart Healthy, Diabetic Activity Discharge Activity: No restrictions Call your provider Call your provider for: Fever or Chills, Other (intolerable pain or difficulty urinating) Patient Instructions Patient Instructions Resume warfarin, strain all urine, get x-ray of abdomen in 1 week one hour prior to appointment, drink lots of water at least 8 glasses per day, see Dr. Peguero in 1 week Follow-up plan See her primary care provider in the next 510 days, get CBC/basic metabolic to follow-up on white count, and kidney function. Also your blood pressure may need better control. Follow-up Provider: George Peguero MD Follow-up with PCP in: 1 week Irvin Lenz MD Sep 06, 2016 12:39
[2016-09-06] MEDS ORDERED: CIPR-231 PO (12:42)
[2016-09-06] MEDS ORDERED: HYDR-4003 PO (12:42)
[2016-09-06 13:51] VITALS: BP 162/87; PULSE 70; RESP 18; O2SAT 98
--- NOTE | 2016-09-06 14:27 | NUR ---
Social Work-discharge: Data:EMR Reviewed. Pt is on day 3 of hospitalization for RT ureteral stone per H&P. Pt is medically stable for discharge. Pt resides at home with who is supportive. Pt denies any SW needs. Pt's family to provide transport home today. No other discharge needs identified. All updated and agreeable to plan. Assessment:Pt who is independent at baseline. Plan:Pt to discharge home today via POV. No other discharge needs identified. All updated and agreeable to plan. HARDEEP Maloney
--- NOTE | 2016-09-06 15:15 | NUR ---
Discharge Patient departed unit via wheelchair, accompanied by staff. Patient alert and oriented at departure. Patient reporting "feeling so much better" and decreased pain. Patient displaying a good appetite, eating 100% of meals. Denied nausea or abdominal discomfort. Patient using urinal at bedside. Urine strained, no evidence of stone seen. Discharge instructions/medications reviewed with patient prior to discharge. All questions addressed. Patient belongings, discharge instructions and prescriptions in hand.
--- NOTE | 2016-09-06 18:58 | PCM.DC.MED ---
Discharge Summary Date of Service Sep 06, 2016 Dates of Hospitalization Date of Hospital Admission Sep 03, 2016 at 22:19 Date of Discharge: Sep 06, 2016 Providers: Admitting Physician: Ricardo Carson MD Primary Care Physician: Nopcp Attending Physician: Ricardo Carson MD Diagnosis at Time of Discharge Diagnosis at Time of Discharge Right-sided kidney stone,hydroureter and moderate hydronephrosis Consultations Urology thank you Dr. Peguero Procedures XRay, CTs & MRIs CT of the abdomen and pelvis with contrast 09/03/2016: IMPRESSION: High-grade distal right ureteral obstruction by a 4 mm stone producing mild to moderate hydronephrosis and hydroureter on the right, with urothelial enhancement and mild thickening and also hypo-enhancement to a mild degree of the right kidney. Urology consultation is recommended. The calculus present measures approximately 325 Hounsfield units. Right lower quadrant ileostomy, no evidence of intestinal obstruction or perforation. Mild pneumobilia, likely related to prior surgery near the pancreatic head. Suspect underlying emphysema from the appearance of the small portion of the lower lobes included on this study. Dictated by: Hermelindo Stein M.D. on 09/03/2016 at 19:05 Chest x-ray on 09/03/2016: IMPRESSION: Prior CABG, sternotomy wires, mild fibrotic change at each lung base. No underlying acute pneumonia or neoplasm is found. Dictated by: Hermelindo Stein M.D. on 09/03/2016 at 21:41 Invasive Procedures None Brief History 81-year-old male with past medical history significant for COPD on 3 L O2 24 hours per day, benign essential tremor, coronary artery disease s/p CABGx4, CKD stage III, atrial fibrillation on chronic anticoagulation with Coumadin, and colon cancer in remission status post right colectomy with ileostomy who presents with right sided back pain. He states the pain began approximately 1-1 /2 weeks ago and radiates to his right inguinal area. The pain is described as sharp and throbbing. It is constant. It has been progressive worsening over last 2 days. He also describes some tenderness at his ileostomy site but denies any increased ostomy output or change in stool consistency. He also describes decreased appetite for one week. He has cough but no increase in sputum from baseline. He describes color of sputum as yellow. There is increased urinary frequency and some hesitancy. He denies any dysuria or hematuria, fevers, chills, shortness of breath, nausea, vomiting, chest pain or pressure. In the emergency department initial vitals were 36.6 Celsius, pulse 111, respiratory rate 18, blood pressure 109/74, satting 98% on 3 L by nasal cannula. Initial laboratory value showed WBC 14.3 with left shift, hemoglobin 12.8, hematocrit 30.9, platelets 218. BUN 29, creatinine 2.12, glucose 133, PT 64.2, INR 5.79. Lactic acid 1.5. Urinalysis showed small occult blood, no nitrates, no leukocyte esterase, no bacteria. Blood cultures are pending. CT of the abdomen and pelvis with contrast shows "high-grade distal right ureteral obstruction by 4 mm stone producing mild to moderate hydronephrosis and hydroureter on the right, with urothelial enhancement and mild thickening and also hypoenhancement to a mild degree of the right kidney. Right lower quadrant ileostomy evidence of intestinal obstruction perforation. Mild pneumobilia likely related to prior surgery near the pancreatic head." In the emergency department he was given FFP to reverse INR, ceftriaxone and a bolus of normal saline. Urology was contacted and recommended be NPO after midnight and be started on ceftriaxone. They will evaluate patient in the morning. Hospital Course 81-year-old male presents with right costovertebral angle pain that radiates the inguinal area 09/03. 09/04 first time meeting medically complex male I renewed all his medications as med rec and not been done. In reorder labs. We have had discussion with Dr. Peguero urology, plan is to avoid operating and hope that he passes the stone on his own. He will be kept nothing by mouth again overnight in the event that perhaps he should go to the OR. I think he is medically optimized but in general a frail patient that is not optimal to be brought to the OR even on the good day. That said if he needs to go he is medically as optimized as I think he can be. He has been told by both his sales attendant and his deposit refund clerk that he should not have his ostomy reversed due to the cardiopulmonary risk. 09/05 renal function continues to improve, he still having pain but it is manageable. INR has been corrected in the event that he needs an intervention I am not resuming warfarin yet. Blood sugar continues to be well controlled. Despite his multiple complex medical issues 09/06 patient continues to have pain but it is controlled with oxycodone, we will discharge him on ciprofloxacin with a prescription for oxycodone for pain control and encouraged him to drink his fluids and follow up with Dr. Das in the outpatient setting in about a week. He is also instructed to continue to strain his urine. Right high-grade distal right ureteral obstruction by 4 mm stone with hydronephrosis, present admission, ongoing: -Urology following -Normal saline at 100 mL per hour -Ceftriaxone 09/05-09/06 giving a 14 day course of ciprofloxacin -Blood cultures from 09/03 still -09/04, UA was clear Elevated INR, present on admission,corrected, resume warfarin close follow-up -On admit PT 64.2 and INR 5.79. Acute kidney injury on chronic kidney disease, present admission, ongoing: -BUN/cr 12/0.99 03/2016. 29/ 2.12 09/03, Cr 1.9 09/04, 1.54 09/05, 1.7 09/06 -This is likely secondary to obstructing stone. Patient also received IV contrast due to imaging as well. -Patient hydrated for the duration of the hospitalization Diabetes mellitus type II, present admission, stable:resume home meds -A1c6.4 09/03 COPD, present admission, ongoing:stable resume home meds on discharge as previously. -Continue on O2 overnight, 3 L. -Continue on albuterol, Symbicort, Spiriva. Ileostomy tenderness, present on admission, ongoing: -No increased ostomy output or change in consistency of stool. -Continue to follow in a.m. -Continue cholestyramine Atrial fibrillation on chronic anti-coagulation, present on admission, ongoing: -Warfarin has been stopped due to elevated INR. -Continue metoprolol tartrate. Coronary disease status post CABG, present on admission, ongoing: -Patient is an beta jennifer. -Consider MARIAH inhibitor and statin as an outpatient. . Exam Vital Signs (Last) Date Time Temp Pulse Resp B/P Pulse Ox O2 Delivery O2 Flow Rate FiO2 09/06/16 13:51 36.4 70 18 162/87 98 Nasal Cannula 3.00 Exam General: No acute distress, appropriately interactive HEENT: Normocephalic, atraumatic. External ears without defect. Pupils equal, round, and reactive to light and accommodation. Anicteric sclerae, moist conjunctivae, and no lid lag. Neck: Supple with full range of motion. No jugular venous distension. Cardiovascular: Regular rate and rhythm Pulmonary: Normal respiratory effort with no use of accessory muscles. Abdomen: Flat Extremities: Trace edema bilaterally lower extremities. Skin: Normal temperature, turgor, and texture; no rash, ulcers, or subcutaneous nodules appreciated. Neurological: Cranial nerves grossly intact. , Nonfocal Psychiatric: Normal mood and affect. Alert and oriented to person, place, and time. Test 09/03/16 17:08 09/03/16 17:10 09/03/16 19:31 09/05/16 06:15 Lactic Acid Level 1.5mmol/L (0.4-2.0) Hemoglobin A1c 6.4% (4.8-5.6) Magnesium Level 1.7mg/dL (1.6-2.6) Lipase 27U/L (13-60) Urine Color Dark yellow (YELLOW) Urine Appearance Clear (CLEAR,HAZY) Urine pH 5.0 (5.0-8.0) Urine Specific [place] 1.015 (1.003-1.035) Urine Protein 100mg/dL (NEG,TRACE) Urine Glucose (UA) Negativemg/dL (NEGATIVE) Urine Ketones 15mg/dL (NEGATIVE) Urine Occult Blood Small (NEGATIVE) Urine Nitrite Negative (NEGATIVE) Urine Bilirubin Negative (NEGATIVE) Urine Urobilinogen Normalmg/dL (NORMAL) Urine Leukocyte Esterase Negative (NEGATIVE) Urine RBC 0-2/hpf (0-2) Urine WBC 0-5/hpf (0-5) Urine Epithelial Cells Occasional/hpf (NONE-MOD) Urine Crystals Amorphous urates (NONE Urine Bacteria None/hpf (NONE-FEW) Urine Hyaline Casts None/lpf (NONE) Urine Granular Casts None seen (NONE SEEN) Urine Waxy Casts None seen (NONE SEEN) Urine Red Blood Cell Casts None seen (NONE SEEN) Urine White Blood Cell Casts None seen (NONE SEEN) Urine Mucus None seen (None Seen) Urine Trichomonas None seen (NONE SEEN) Urine Yeast None (NONE SEEN) Urinalysis Comment None Urine Culture Reflexed Not indicated Prothrombin Time 11.6sec (8.1-12.5) Prothromb Time International Ratio 1.08ratio Activated Partial Thromboplast Time 32.0sec (22.8-33.0) Total Bilirubin 0.5mg/dL (0.0-1.2) Aspartate Amino Transf (AST/SGOT) 20U/L (0-50) Alanine Aminotransferase (ALT/SGPT) 28U/L (0-44) Alkaline Phosphatase 77U/L (25-160) Total Protein 6.0g/dL (6.4-8.4) Albumin 2.8g/dL (3.4-5.0) Test 09/06/16 06:30 White Blood Count 13.1th/mm3 (3.8-10.1) Red Blood Count 4.08mil/mm3 (4.40-5.80) Hemoglobin 12.9g/dL (13.8-17.2) Hematocrit 39.2% (41.0-50.0) Mean Corpuscular Volume 96.1fL (81-100) Mean Corpuscular Hemoglobin 31.6pg (27.0-35.0) Mean Corpuscular Hemoglobin Concent 32.9% (32.0-37.0) Red Cell Distribution Width 12.8% (12.3-15.4) Platelet Count 250bil/L (150-400) Neutrophils (%) (Auto) 56% (40-74) Lymphocytes (%) (Auto) 18% (14-46) Monocytes (%) (Auto) 19% (4-12) Eosinophils (%) (Auto) 4% (0-5) Basophils (%) (Auto) 1% (0-3) Myelocytes % 2% (0-0) Sodium Level 139mEq/L (134-144) Potassium Level 4.3mEq/L (3.5-5.2) Chloride Level 105mEq/L (97-108) Carbon Dioxide Level 21mmol/L (18-29) Blood Urea Nitrogen 18mg/dL (8-27) Creatinine 1.70mg/dL (0.76-1.27) Estimat Glomerular Filtration Rate 42mL/min (>59) Glucose Level 113mg/dL (60-99) Calcium Level 8.8mg/dL (8.5-10.1) Microbiology Results Urine culture was never done it was clear, blood cultures are negative from admission to this point in time. Discharge Medications Discharge Medications Albuterol Neb Soln (Albuterol Neb Soln) 2.5 Mg/3 Ml Vial.neb 2.5 MG INHALATION BID (Reported) Ascorbate Calcium (Vitamin C) 500 Mg Tablet 1,000 MG PO DAILY (Reported) Budesonide/Formoterol 160-4.5 mcg Inh (Symbicort 160-4.5 mcg Inh) 120 Puff Inhaler 1 PUFF INHALATION BID (Reported) Calcium/Magnesium/Zinc (Qawnidg-Vzingczcs-Klfi Tablet) 1 Each Tablet 1 TABLET PO DAILY (Reported) Cholecalciferol (Vitamin D3) (Vitamin D) 1,000 Unit Capsule 1,000 UNITS PO DAILY (Reported) Cholestyramine (Cholestyramine Packet) 4 Gm Packet 2 GM PO TID Prescribed by: JESSICA MARKHAM MD Ciprofloxacin (Cipro) 500 Mg Tablet 500 MG PO BID Prescribed by: JAY LENZ MD Cyanocobalamin (Vitamin B-12) (Vitamin B-12) 500 Mcg Lozenge 1 TAB PO DAILY ( Reported) Gabapentin (Gabapentin) 300 Mg Capsule 600 MG PO TID (Reported) Glimepiride (Glimepiride) 4 Mg Tablet 0.5 TABLET PO DAILY (Reported) Metoprolol Tartrate (Metoprolol Tartrate) 50 Mg Tablet 50 MG PO DAILY (Reported ) Montelukast (Montelukast) 10 Mg Tablet 10 MG PO DAILY (Reported) Multivits-Min/FA/Lycopene/Lut (Centrum Silver Tablet) 1 Each Tablet 1 EACH PO DAILY (Reported) Pantoprazole DR (Pantoprazole DR) 20 Mg Tablet.dr 20 MG PO DAILY (Reported) Potassium (Potassium) 99 Mg Tablet 1 TABLET PO DAILY (Reported) Primidone (Primidone) 50 Mg Tablet 50 MG PO HS (Reported) Tiotropium [place] (Spiriva) 18 Mcg Cap.w.dev 1 INH IH DAILY (Reported) Warfarin Sodium (Warfarin Sodium) 6 Mg Tablet 6 MG PO DAILY (Reported) Warfarin Sodium (Warfarin Sodium) 2 Mg Tablet 8 MG PO DAILY (Reported) As needed Albuterol Neb Soln (Albuterol Neb Soln) 2.5 Mg/3 Ml Vial.neb 2.5 MG INHALATION TID PRN PRN For Wheezing (Reported) Hydrocodone-Acetaminophen 5-325 mg (Hydrocodone-Acetaminophen 5-325 mg) 1 Each Tablet 1-2 TABLET PO Q4H PRN PRN For Moderate Pain Prescribed by: JAY LENZ MD Nystatin (Nystatin) 20 Applic/15 Gm Oint 1 APPLIC EXTERNAL PRN rash (Reported) Followup Plan Disposition: To home Follow-up plan See her primary care provider in the next 510 days, get CBC/basic metabolic to follow-up on white count, and kidney function. Also your blood pressure may need better control. Discharge Diet: Heart Healthy, Diabetic Discharge Activity: No restrictions Patient Instructions Resume warfarin, strain all urine, get x-ray of abdomen in 1 week one hour prior to appointment, drink lots of water at least 8 glasses per day, see Dr. Peguero in 1 week Follow-up Provider: George Peguero MD Follow-up with PCP in: 1 week Time spent Greater than 30 minutes Attending Statement A copy of this should go to the patient's primary care provider, I cannot believe he does not have one. Patient needs close follow up on INR in outpatient clinic as well as cbc/BMP/INR 09/10-09/11ishhis INR is likely to be elevated because he is on Cipro, BMP will like to see improvement/resolution of AK I, and CBC to look at the wbc's and possible anemia. Jay Lenz MD Sep 06, 2016 18:58
== END 2016-09-06 14:58 | disposition home or self-care (01) | DRG 694 ==
LOC: SED 15:48 → MPC 22:19 → OBSVTOIN 22:19 → MPC 23:20
PROVIDERS: ADMIT Hospitalist; ATTEND Hospitalist
PROC: 30233K1 Transfusion of Nonautologous Frozen Plasma into Peripheral Vein, Percutaneous Approach (ICD-10-PCS; principal; 2016-09-03)
PROC: 30233K1 Transfusion of Nonautologous Frozen Plasma into Peripheral Vein, Percutaneous Approach (ICD-10-PCS; 2016-09-04)
DX: N13.2 Hydronephrosis with renal and ureteral calculous obstruction (principal); N17.9 Acute kidney failure, unspecified; E11.9 Type 2 diabetes mellitus without complications; J44.9 Chronic obstructive pulmonary disease, unspecified; Z79.01 Long term (current) use of anticoagulants; I25.10 Atherosclerotic heart disease of native coronary artery without angina pectoris; N18.3 Chronic kidney disease, stage 3 (moderate); Z87.891 Personal history of nicotine dependence; I12.9 Hypertensive chronic kidney disease with stage 1 through stage 4 chronic kidney disease, or unspecified chronic kidney disease; Z99.81 Dependence on supplemental oxygen; I48.0 Paroxysmal atrial fibrillation; Z93.2 Ileostomy status

== ENCOUNTER 2016-09-15 09:29 | Inpatient (IN) | payer MEDICARE ==
[~2016-09-15] VITALS: Ht 177.8 cm; Wt 85.0 kg
[~2016-09-15 09:29] MED LIST changes: +ASCO-294 PO; +CHOL100045 PO; +CIPR-231 PO; +CYAN500L4 PO; +GLIM4TAB2 PO; +HYDR-4003 PO; +MONT10TA23 PO; +PANT20TA2 PO; +POTA99TA7 PO; +PRIM50TA PO; +SYMINH INHALATION; +WARF2TAB7 PO; +[UNRECOGNIZED DRUG - CODE] PO; -[UNRECOGNIZED DRUG - CODE] PO
[2016-09-15 09:37] VITALS: BP 134/90; PULSE 85; RESP 20; O2SAT 97
--- NOTE | 2016-09-15 09:53 | ED.REPORT ---
HPI-General Illness Date of Service Sep 15, 2016 ED Provider: Bala Castorena MD Patient is a 81 y/o male on Coumadin with a history of COPD on over 4 liters of oxygen, CABG x4, a-fib, and renal failure presenting to the ED due to abnormal labs. Patient was recently admitted for a kidney stone and discharged on Ciprofloxacin and Flomax without having the stone removed. He was seen by his urologist yesterday and labs were drawn. His urologist called this morning and informed him that his labs were abnormal with elevated white blood count and increased creatinine, and instructed him to come to the ED. The pt has been experiencing shortness of breath and nausea but denies vomiting, fever, back pain, abdominal pain, dysuria, and hematuria. Nursing Notes Stated Complaint: SENT BY FOR POSSIBLE READMIT Chief Complaint: General Complaint Nursing Notes Reviewed: Yes Allergies: Coded Allergies: No Known Drug Allergies (Verified Allergy, Unknown, 09/03/16) Scheduled Ascorbate Calcium (Vitamin C) 500 Mg Tablet 1,000 MG PO DAILY Budesonide/Formoterol 160-4.5 mcg Inh (Symbicort 160-4.5 mcg Inh) 120 Puff Inhaler 1 PUFF INHALATION BID Calcium/Magnesium/Zinc (Ciuxdyz-Ydagmilsb-Giyv Tablet) 1 Each Tablet 1 TABLET PO DAILY Cholecalciferol (Vitamin D3) (Vitamin D) 1,000 Unit Capsule 1,000 UNITS PO DAILY Cholestyramine (Cholestyramine Packet) 4 Gm Packet 2 GM PO TID Ciprofloxacin (Cipro) 500 Mg Tablet 500 MG PO BID Cyanocobalamin (Vitamin B-12) (Vitamin B-12) 500 Mcg Lozenge 1 TAB PO DAILY Gabapentin (Gabapentin) 300 Mg Capsule 600 MG PO TID Glimepiride (Glimepiride) 4 Mg Tablet 0.5 TABLET PO DAILY Metoprolol Tartrate (Metoprolol Tartrate) 50 Mg Tablet 50 MG PO DAILY Montelukast (Montelukast) 10 Mg Tablet 10 MG PO DAILY Multivits-Min/FA/Lycopene/Lut (Centrum Silver Tablet) 1 Each Tablet 1 EACH PO DAILY Pantoprazole DR (Pantoprazole DR) 20 Mg Tablet.dr 20 MG PO QAM Potassium (Potassium) 99 Mg Tablet 1 TABLET PO DAILY Primidone (Primidone) 50 Mg Tablet 50 MG PO HS Tiotropium [place] (Spiriva) 18 Mcg Cap.w.dev 1 INH IH DAILY Warfarin Sodium (Warfarin Sodium) 6 Mg Tablet 6 MG PO DAILY Warfarin Sodium (Warfarin Sodium) 2 Mg Tablet 8 MG PO DAILY Scheduled PRN Albuterol HFA (Proair HFA) 8.5 Gm Hfa.aer.ad 2 PUFFS INHALATION Q4H PRN PRN For Wheezing Albuterol Neb Soln (Albuterol Neb Soln) 2.5 Mg/3 Ml Vial.neb 2.5 MG INHALATION TID PRN PRN For Wheezing Nystatin (Nystatin) 20 Applic/15 Gm Oint 1 APPLIC EXTERNAL PRN rash General Time Seen by MD: 09:50 Chief Complaint Other (Abnormal labs) Hx Obtained From: Patient Arrived By: Walk-in Sudden in Onset?: No Symptom Duration: Since onset Recent Healthcare: Recent doctor visit, Recent hospitalization Past Medical History Past Medical History Notes: PCP: Dr. Christopher Teague CODE STATUS: Would like resuscitation but no life support. Past Medical History COPD on home oxygen Small bowel obstruction 2013 Essential tremor History of colon cancer s/p right colectomy with ileostomy placement Paroxysmal atrial fibrillation Diabetes mellitus type 2 Chronic kidney disease stage III Renal failure, no dialysis Reports: Asthma, COPD, Coronary artery disease Past Surgical History Colectomy for colon cancer with loop ileostomy 4x Bypass Reports: Appendectomy, CABG Family History Negative for colon cancer Smoking History Former Smoker Social History Drug Use: Denies drug use Other Social History: Good social support, Local resident Ambulatory Status Independent Review of Systems Full Review of Systems Constitutional: Denies: Fever Respiratory: Reports: Shortness of breath, Denies: Non-productive cough GI: Reports: Nausea, Denies: Abdominal pain, Vomiting Male: Denies Dysuria, Denies Hematuria Musculoskeletal: Denies: Back pain Complete sys rev & neg: except as marked. Physical Exam Vital Signs Vital Signs Date Time Temp Pulse Resp B/P Pulse Ox O2 Delivery O2 Flow Rate FiO2 09/15/16 12:47 95 20 122/78 94 Nasal Cannula 2 09/15/16 09:56 98 16 128/90 98 Nasal Cannula 3 09/15/16 09:37 36.4 85 20 134/90 97 Room Air Initial VS: Reviewed, Vital signs abnormal General/Constitutional: Awake, Alert Head / Eyes: Atraumatic, Normocephalic, PERRL, EOMI ENT: Atraumatic, Airway patent, Mucous membranes moist Neck: Atraumatic, Supple, Full range of motion Respiratory / Chest: Atraumatic, Breath sounds NL, Breath sounds = bilat, No respiratory distress Cardiovascular: Heart rate NL, Regular rhythm, Heart sounds NL Abdomen: Atraumatic, Soft, No guarding, No rebound diffuse lower abdominal tenderness Back: Atraumatic, Full range of motion, No CVA tenderness Upper Extremities Upper Extremity / MS: Atraumatic, Full range of motion Lower Extremity / Pelvis / MS: Atraumatic, Full range of motion, No edema Skin: Atraumatic, Color NL, No rash, Warm, Dry Neurologic: Oriented X3, Speech NL, No motor deficits, No sensory deficits Psychiatric: Affect NL, Mood NL Interpretation & Diagnostics Interpretation & Diagnostics: CT KUB: IMPRESSION: 1. 4-5 mm right ureteral stone has passed the level of the right UVJ. Moderate to severe right-sided hydronephrosis. 2. Slight, focal irregular wall thickening involving the anterior-superior urinary bladder wall. Recommend cystoscopy to exclude urothelial based neoplastic process. Dictated by: Jamaica Deluca MD, PhD on 09/15/2016 at 10:33 Approved by: Jamaica Deluca MD, PhD on 09/15/2016 at 10:43 Lab Results Interpretation Result Diagram: 09/15/16 1050 09/15/16 1050 Test 09/15/16 10:50 09/15/16 12:30 White Blood Count 13.5th/mm3 (3.8-10.1) Red Blood Count 3.84mil/mm3 (4.40-5.80) Hemoglobin 11.9g/dL (13.8-17.2) Hematocrit 36.8% (41.0-50.0) Mean Corpuscular Volume 95.8fL (81-100) Mean Corpuscular Hemoglobin 31.0pg (27.0-35.0) Mean Corpuscular Hemoglobin Concent 32.3% (32.0-37.0) Red Cell Distribution Width 12.6% (12.3-15.4) Platelet Count 363bil/L (150-400) Neutrophils (%) (Auto) 75.3% (40-74) Lymphocytes (%) (Auto) 12.7% (14-46) Monocytes (%) (Auto) 10.7% (4-12) Eosinophils (%) (Auto) 0.7% (0-5) Basophils (%) (Auto) 0.1% (0-3) Prothrombin Time 20.6sec (8.1-12.5) Prothromb Time International Ratio 1.90ratio Sodium Level 137mEq/L (134-144) Potassium Level 4.3mEq/L (3.5-5.2) Chloride Level 102mEq/L (97-108) Carbon Dioxide Level 19mmol/L (18-29) Blood Urea Nitrogen 34mg/dL (8-27) Creatinine 2.11mg/dL (0.76-1.27) Estimat Glomerular Filtration Rate 32mL/min (>59) Glucose Level 147mg/dL (60-99) Lactic Acid Level 1.4mmol/L (0.4-2.0) Calcium Level 9.4mg/dL (8.5-10.1) Magnesium Level 1.8mg/dL (1.6-2.6) Total Bilirubin 0.6mg/dL (0.0-1.2) Aspartate Amino Transf (AST/SGOT) 25U/L (0-50) Alanine Aminotransferase (ALT/SGPT) 28U/L (0-44) Alkaline Phosphatase 71U/L (25-160) Total Protein 8.0g/dL (6.4-8.4) Albumin 3.3g/dL (3.4-5.0) Lipase 90U/L (13-60) Hold Red Top Tube Received (Received) Urine Color Yellow (YELLOW) Urine Appearance Hazy (CLEAR,HAZY) Urine pH 5.0 (5.0-8.0) Urine Specific [place] 1.030 (1.003-1.035) Urine Protein 30mg/dL (NEG,TRACE) Urine Glucose (UA) Negativemg/dL (NEGATIVE) Urine Ketones Negativemg/dL (NEGATIVE) Urine Occult Blood Large (NEGATIVE) Urine Nitrite Negative (NEGATIVE) Urine Bilirubin Negative (NEGATIVE) Urine Urobilinogen Normalmg/dL (NORMAL) Urine Leukocyte Esterase Negative (NEGATIVE) Urine RBC >50/hpf (0-2) Urine WBC 0-5/hpf (0-5) Urine Epithelial Cells Occasional/hpf (NONE-MOD) Urine Crystals Uric acid crystals (NONE Urine Bacteria Moderate/hpf (NONE-FEW) Urine Hyaline Casts Occasional/lpf (NONE) Urine Granular Casts Occasional (NONE SEEN) Urine Waxy Casts None seen (NONE SEEN) Urine Red Blood Cell Casts None seen (NONE SEEN) Urine White Blood Cell Casts None seen (NONE SEEN) Urine Mucus None seen (None Seen) Urine Trichomonas None seen (NONE SEEN) Urine Yeast None (NONE SEEN) Urinalysis Comment None Urine Culture Reflexed Not indicated ECG Interpretation ECG Interpretation: normal sinus rhythm with a rate of [address]/T changes Q waves in through VIII questionable ST segment elevation isolated in unchanged from previous dated 09/30/2015 Time: 10:15 Interpreted by: ED physician Re-Eval/Medical Decision Med Decision/Clinical Course 81-year-old male history of CAD, CABG, COPD, kidney stone with recent admission for right-sided kidney stone sent in by urologist for worsening acute kidney injury and admission. CT shows a 4 mm stone with moderate to severe right hydronephrosis. White blood cell count is 13,000 which is consistent with previous. Urine negative for infection. Acute kidney injury. Patient will be admitted after discussion with urology for conservative management with Flomax and Rocephin. Recommended Rocephin even in the setting of urine not suggestive of UTI given leukocytosis and kidney stone. Urology will follow. Source of Hx: Old records Time of Eval: 11:51 Re-Evaluation/Progress Note: Pt rechecked, who is resting. Radiology results, plan for urology consultation and the plan for admission are discussed. The pt understands and agrees with the plan. All questions are addressed at this time. Consultation #1: Referral / Consult Name: George Peguero MD Consulted With: Urology Call Returned at: 11:55 Development Coach: Agrees with eval, Agrees with plan Note: Discussed patient's case. Agrees with evaluation and plan. Accepts consult. Consultation #2: Referral / Consult Name: Kelvin Clayton Consulted With: Hospitalist Call Returned at: 13:56 Development Coach: Will see patient, Agrees with eval, Agrees with plan, Accepts admit Note: Discussed patient's case. Agrees with plan and accepts admission. Counseled Regarding: Diagnosis, Lab results, Need for admission Discharge & Departure Primary Impression: Kidney stone Additional Impressions: Acute kidney injury Leukocytosis Leukocytosis type: unspecified Qualified Code: D72.829 - Elevated white blood cell count, unspecified Urinary tract obstruction by kidney stone UTI (urinary tract infection) Urinary tract infection type: site unspecified Hematuria presence: without hematuria Qualified Code: N39.0 - Urinary tract infection, site not specified Disposition: ADMITTED TO HOSPITAL Discharge Condition All VS Reviewed: Yes Condition: Stable Referrals: George Peguero MD [facility] Diana Attestation Portions of this note were transcribed by Linda Calabrese & Darron Morgan. I, Dr. Castorena personally performed the history, physical exam and medical decision-making; I reviewed and confirmed the accuracy of the information in the transcribed note. Signed by: Diana Gusman, 09/15/2016 and 1521. copies to: George Pegureo MD; [facility] Bala Castorena MD Sep 15, 2016 09:53 Linda Calabrese Sep 15, 2016 09:57 DARRON MORGAN Sep 15, 2016 11:52
[2016-09-15 09:56] VITALS: BP 128/90; PULSE 98; RESP 16; O2SAT 98
[2016-09-15] MEDS ORDERED: 0.9% Sodium Chloride 500 ML IV ONE (10:03)
[2016-09-15] MEDS ORDERED: Ondansetron 2 mg/mL 2 mL Inj IVPUSH PRN ×3 (10:05→18:50)
--- NOTE | 2016-09-15 10:45 | DRSVH ---
PROCEDURE: CT KUB ([id number]) INDICATIONS: R lower back pain, recent kidneystone TECHNIQUE: Noncontrast 5 mm thick sections acquired from the diaphragms to the symphysis. 5 mm thick coronal an d sagittal reformats were then performed. For radiation dose reduction, the following was used: aut omated exposure control, adjustment of mA and/or kV according to patient size. COMPARISON: [facility], CT, CT ABD PELVIS W CON, 09/03/2016, 18:26. FINDINGS: Image quality: Excellent. Lung bases: No acute lung opacity is identified in the lung bases. Scattered, peripheral interstitial thickening in the lung bases. Emphysematous changes in lung bases. Postsurgical changes compatible w ith prior CABG procedure noted. Heart size is normal. Urinary system: Both kidneys are normal in size. There is a 4-5 mm in maximum diameter stone in the right ureter which has passed the level of the right UVJ. Moderate to severe right-sided hydronephros is is stable compared to prior examination. No left-sided renal stones or hydronephrosis. Inflammator y changes noted adjacent to the right kidney and right ureter. No calcified bladder stones. There is slight, irregular wall thickening involving the anterior superior urinary bladder wall. Other solid organs: Liver and spleen are normal in size. Gallbladder is within normal limits. Panc reas is normal in contours. Multiple surgical clips are noted adjacent to the pancreatic head; please correlate with surgical history. No adrenal nodules. Peritoneum and bowel: Unenhanced bowel loops demonstrate normal wall thickness and caliber. No free fluid or air. Nodes and vessels: No retroperitoneal or mesenteric adenopathy by size criteria. Aorta and inferior vena cava are normal in caliber. Atherosclerotic calcifications noted in the abdominal and pelvic va sculature. Abdominal wall: No ventral hernias. Right lower quadrant ileostomy with peristomal herniated loops o f small bowel is stable compared to prior examination. Pelvis: No free pelvic fluid. No inguinal hernias or adenopathy. Bones: No suspicious bony lesions. No vertebral body compression fractures. IMPRESSION: 1. 4-5 mm right ureteral stone has passed the level of the right UVJ. Moderate to severe right-sided hydronephrosis. 2. Slight, focal irregular wall thickening involving the anterior-superior urinary bladder wall. Gustavo mmend cystoscopy to exclude urothelial based neoplastic process. Dictated by: Jamaica Deluca MD, PhD on 09/15/2016 at 10:33 Approved by: Jamaica Deluca MD, PhD on 09/15/2016 at 10:43
[2016-09-15 11:13] LABS: BASOPHILS % (AUTO) 0.1 % (0-3); EOSINOPHILS % (AUTO) 0.7 % (0-5); MONOCYTES % (AUTO) 10.7 % (4-12); Mean Corpuscular Volume 95.8 fL (81-100); NEUTROPHILS % (AUTO) 75.3 % (40-74); Platelet Count 363 bil/L (150-400)
[2016-09-15 11:17] LABS: INR 1.9 ratio
[2016-09-15 11:24] LABS: Magnesium 1.8 mg/dL (1.6-2.6)
[2016-09-15] MEDS ORDERED: ALBU8.5H2 INHALATION (11:45)
[2016-09-15] MEDS ORDERED: cefTRIAXone Inj 2,000 MG in Dextrose 5% Minibag Plus 50 ML IV ONE (12:00)
[2016-09-15 12:47] VITALS: BP 122/78; PULSE 95; RESP 20; O2SAT 94
[2016-09-15 13:37] LABS: APPEARANCE,URINE HAZY (CLEAR,HAZY); COLOR,URINE YELLOW (YELLOW); OCCULT BLOOD,URINE LARGE (NEGATIVE); UROBILINOGEN,URINE NORMAL (NORMAL)
[2016-09-15] MEDS ORDERED: Alum-Mag Hydrox-Simeth 30 mL Suspension PO PRN ×2 (14:00→18:50)
--- NOTE | 2016-09-15 14:04 | CONS ---
[address] [address] CONSULTATION REPORT PATIENT: DIAZ YOU : 1935 MR#: [id number] ADMIT: 09/15/2016 JOB ID: [id number] DATE OF SERVICE: 09/15/2016 CHIEF COMPLAINT: Right back and flank pain, nausea, right ureteral calculus. HISTORY OF PRESENT ILLNESS: I was asked by the ER doctor, Bala Castorena, to evaluate this 81-year-old male for right back and flank pain, nausea, and right ureteral calculus. The patient is well-known to me from prior hospitalization. The patient was admitted on September 03, 2016 here at [facility] for right back, flank and groin pain and nausea secondary to a 4 mm right distal ureteral calculus and mild to moderate right hydroureteronephrosis on CT scan with CT scan also showing mild right perinephric and periureteral edema and mild urothelial enhancement and thickening in the right kidney and right ureter with leukocytosis with a white blood cell count 14.3, and acute renal insufficiency with creatinine 2.12. The patient was on the hospitalist service and was treated with IV fluid hydration and started on Flomax and treated with IV ceftriaxone. The patient subsequently had pain well controlled on oral pain medications, improved nausea, and tolerating p.o. Of note Coumadin was held on hospitalization and then the patient had supratherapeutic INR of 5.79. The patient was discharged home on September 06, 2016, with laboratories on September 06, 2016 showing improved white blood cell count of 13.1, improved creatinine of 1.70. I saw the patient in the office yesterday and the patient was taking Cipro and Flomax which patient had been discharged home on Cipro from hospitalization. At the office yesterday, the patient had reported improved right low back and flank pain relieved by p.o. Tylenol #4 with no fever, occasional minimal nausea, and no vomiting. The patient had laboratories yesterday showing white blood cell count elevated at 15.5, and creatinine elevated at 2.10, and patient was advised to go to the emergency room for evaluation. The patient presented to emergency department where the patient was afebrile and with laboratories showing white blood cell count elevated at 13.5 and creatinine elevated at 2.11, lactic acid 1.4, which is within normal limits. The patient is being admitted to the hospitalist service. The patient presently reports occasional right low back and right flank pain relieved by Tylenol #4 which he last had to take last night. Occasional mild nausea and no vomiting. Tolerating p.o. No dysuria. No gross hematuria. No difficulty voiding. No fever. The patient had a CT scan of abdomen and pelvis noncontrast showed a 4-5 mm right ureterovesical junction calculus, moderate to severe right hydronephrosis which was stable from CT scan on September 03, 2016. Inflammatory changes adjacent to the right kidney and right ureter. Slight irregular bladder wall thickening. No lymphadenopathy. Again, the patient is being admitted to the hospitalist. PAST MEDICAL HISTORY: 1. COPD, on home oxygen. 2. History of small-bowel obstruction. 3. Essential tremor. 4. Colon cancer. 5. Atrial fibrillation on chronic anticoagulation with Coumadin. 6. Diabetes mellitus. 7. Chronic kidney disease. 8. Coronary artery disease. 9. Hypertension. 10. Obstructive sleep apnea. PAST SURGICAL HISTORY: 1. Colectomy with loop ileostomy. 2. Coronary artery bypass graft. 3. Appendectomy. MEDICATIONS: Home medications: Vitamin C, Symbicort, calcium, magnesium, zinc, vitamin D3, cholestyramine, Cipro, vitamin B12, gabapentin, glimepiride, metoprolol, montelukast, multivitamin, pantoprazole, potassium, primidone, Spiriva, Coumadin, albuterol p.r.n., nystatin p.r.n. ALLERGIES: No known drug allergies. SOCIAL HISTORY: Former smoker. No drug use. FAMILY HISTORY: Noncontributory. REVIEW OF SYSTEMS: Constitutional: No fever. GI: Positive nausea. No vomiting. PHYSICAL EXAMINATION: Vital signs: Temperature afebrile, temperature 36.4 degrees Celsius. Heart rate 98, respiratory rate 16, BP 128/90, O2 saturation 98% on 3 L nasal cannula. General: Well-developed, well-nourished elderly male, in no acute distress. HEENT exam: Head normocephalic, atraumatic. Eyes: Extraocular muscles intact. Neck is supple. Chest: No use of accessory muscles no retractions. Abdomen is soft, nondistended, nontender. No palpable masses. Ileostomy in right abdomen with stool in the ileostomy bag. Back: No costovertebral angle tenderness. exam: Penis normal. No lesions. Urethral meatus normal. Testes bilaterally descended. No masses. Scrotum normal. Skin: Warm and dry. Neurologic exam: Sensation grossly intact to touch. Normal speech. Psych exam: Alert and oriented x3. Normal mood and affect. LABORATORY DATA: Laboratories today: White blood cell count 13.5, hematocrit 36.8, platelets 363. PT 20.6, INR 1.90. Sodium 137, potassium 4.3, chloride 102, CO2 19, BUN 34, creatinine 2.11. Glucose 147, lactic acid 1.4. Urinalysis is pending. Microbiology: Blood cultures pending. IMAGING: CT scan as per HPI. ASSESSMENT: Right back and flank pain and nausea secondary to a 4-5 mm right ureterovesical junction calculus and right hydronephrosis. Also a CT scan showing inflammatory changes adjacent to the right kidney and right ureter and slight irregular bladder wall thickening with calculus seen to have migrated distally from the distal ureter to the right ureterovesical junction compared to CT scan on September 03, 2016, with pain well controlled on oral pain medications and mild nausea with no fever, with white blood cell count mildly elevated at 13.5, and creatinine elevated at 2.11. PLAN: Recommend IV fluid hydration and straining all urine. Continuing Flomax 0.4 mg p.o. daily and broad-spectrum IV antibiotics. Recommend following laboratories, including white blood cell count, creatinine and electrolytes. Recommend checking urinalysis. Recommend pain control with oral pain medications with IV pain medication for breakthrough pain and antiemetics. Anticipate the patient likely will be able to pass this right ureteral calculus, and thus patient has no signs of sepsis as he is afebrile and hemodynamically stable, would recommend IV fluid hydration. Would recommend cystoscopy in the future which can be done as an outpatient. Case was discussed with ER doctor, Dr. Castorena.
[2016-09-15 14:39] VITALS: BP 174/78; PULSE 105; RESP 18; O2SAT 98
[2016-09-15] MEDS ORDERED: Dextrose 10% 250 ML IV PRN (18:50)
[2016-09-15] MEDS ORDERED: HYDROcodone-APAP 5-325 mg Tablet PO PRN (18:50)
[2016-09-15] MEDS ORDERED: 0.9% Sodium Chloride 1,000 ML IV ONE (18:50)
[2016-09-15] MEDS ORDERED: Polyethylene Glycol (PEG) 17 Gm Powder PO PRN (18:50)
--- NOTE | 2016-09-15 19:06 | PCM.HPMED ---
Subjective Date of Service Sep 15, 2016 Primary Provider: Admitting Physician: Kelvin Clayton Primary Care Physician: Clinic,[facility] Residency Attending Physician: Kelvin Clayton Chief Complaint: abnormal labs History of Present Illness: 81-year-old male with past medical history significant for COPD on 3 L O2 24 hours per day, benign essential tremor, coronary artery disease s/p CABGx4, CKD stage III, atrial fibrillation on chronic anticoagulation with Coumadin, and colon cancer in remission status post right colectomy with ileostomy who was discharged less than 10 days ago with diagnosis of right sided kidney stone and associated RODOLFO and hydronephrosis. He had followup appointment with his urologist (Dr. Peguero) today at which time his lab work was notable for acutely worse Cr and continued leukocytosis and so he was directed to come to the ED to be admitted to the hospitalist service. Patient otherwise denies any acutely new issues or complaints. 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 Villanueva) tomorrow. He also reports about 15 lbs weight loss over the past 2 weeks and otherwise review of systems is negative for new issues. In the ED per urology recommendations he received a dose of IV Ceftriaxone. Review of Systems: Constitutional: Negative, except as otherwise mentioned in the history above. Ophthalmologic: Negative, except as otherwise mentioned in the history above. Cardiovascular: Negative, except as otherwise mentioned in the history above. Respiratory: Negative, except as otherwise mentioned in the history above. Gastrointestinal: Negative, except as otherwise mentioned in the history above. Genitourinary: Negative, except as otherwise mentioned in the history above. Musculoskeletal: Negative, except as otherwise mentioned in the history above. Neurological: Negative, except as otherwise mentioned in the history above. Psychiatric: Negative, except as otherwise mentioned in the history above. Hematologic/Lymphatic: Negative, except as otherwise mentioned in the history above. Allergic/Immunologic: Negative, except as otherwise mentioned in the history above. Allergies Coded Allergies: No Known Drug Allergies (Verified Allergy, Unknown, 09/03/16) Home Medications Albuterol Neb Soln (Albuterol Neb Soln) 2.5 Mg/3 Ml Vial.neb 2.5 MG INHALATION BID (Reported) Ascorbate Calcium (Vitamin C) 500 Mg Tablet 1,000 MG PO DAILY (Reported) Budesonide/Formoterol 160-4.5 mcg Inh (Symbicort 160-4.5 mcg Inh) 120 Puff Inhaler 1 PUFF INHALATION BID (Reported) Calcium/Magnesium/Zinc (Qmifwxa-Veivpvign-Pmet Tablet) 1 Each Tablet 1 TABLET PO DAILY (Reported) Cholecalciferol (Vitamin D3) (Vitamin D) 1,000 Unit Capsule 1,000 UNITS PO DAILY (Reported) Cholestyramine (Cholestyramine Packet) 4 Gm Packet 2 GM PO TID Prescribed by: JESSICA MARKHAM MD Ciprofloxacin (Cipro) 500 Mg Tablet 500 MG PO BID Prescribed by: JAY ABRAHAM MD Cyanocobalamin (Vitamin B-12) (Vitamin B-12) 500 Mcg Lozenge 1 TAB PO DAILY ( Reported) Gabapentin (Gabapentin) 300 Mg Capsule 600 MG PO TID (Reported) Glimepiride (Glimepiride) 4 Mg Tablet 0.5 TABLET PO DAILY (Reported) Metoprolol Tartrate (Metoprolol Tartrate) 50 Mg Tablet 50 MG PO DAILY (Reported ) Montelukast (Montelukast) 10 Mg Tablet 10 MG PO DAILY (Reported) Multivits-Min/FA/Lycopene/Lut (Centrum Silver Tablet) 1 Each Tablet 1 EACH PO DAILY (Reported) Pantoprazole DR (Pantoprazole DR) 20 Mg Tablet.dr 20 MG PO DAILY (Reported) Potassium (Potassium) 99 Mg Tablet 1 TABLET PO DAILY (Reported) Primidone (Primidone) 50 Mg Tablet 50 MG PO HS (Reported) Tiotropium [place] (Spiriva) 18 Mcg Cap.w.dev 1 INH IH DAILY (Reported) Warfarin Sodium (Warfarin Sodium) 6 Mg Tablet 6 MG PO DAILY (Reported) Warfarin Sodium (Warfarin Sodium) 2 Mg Tablet 8 MG PO DAILY (Reported) As needed Albuterol Neb Soln (Albuterol Neb Soln) 2.5 Mg/3 Ml Vial.neb 2.5 MG INHALATION TID PRN PRN For Wheezing (Reported) Hydrocodone-Acetaminophen 5-325 mg (Hydrocodone-Acetaminophen 5-325 mg) 1 Each Tablet 1-2 TABLET PO Q4H PRN PRN For Moderate Pain Prescribed by: JAY ABRAHAM MD Nystatin (Nystatin) 20 Applic/15 Gm Oint 1 APPLIC EXTERNAL PRN rash (Reported) Exam Vital Signs & I/O Vital Sign- Last 8 Hours Date Time Temp Pulse Resp B/P Pulse Ox O2 Delivery O2 Flow Rate FiO2 09/15/16 14:45 Supplement Oxygen 09/15/16 14:39 37.1 105 18 174/78 98 Nasal Cannula 2.00 09/15/16 12:47 95 20 122/78 94 Nasal Cannula 2 Lab & Micro Results Laboratory Tests Test 09/15/16 10:50 09/15/16 12:30 White Blood Count 13.5th/mm3 (3.8-10.1) Red Blood Count 3.84mil/mm3 (4.40-5.80) Hemoglobin 11.9g/dL (13.8-17.2) Hematocrit 36.8% (41.0-50.0) Mean Corpuscular Volume 95.8fL (81-100) Mean Corpuscular Hemoglobin 31.0pg (27.0-35.0) Mean Corpuscular Hemoglobin Concent 32.3% (32.0-37.0) Red Cell Distribution Width 12.6% (12.3-15.4) Platelet Count 363bil/L (150-400) Neutrophils (%) (Auto) 75.3% (40-74) Lymphocytes (%) (Auto) 12.7% (14-46) Monocytes (%) (Auto) 10.7% (4-12) Eosinophils (%) (Auto) 0.7% (0-5) Basophils (%) (Auto) 0.1% (0-3) Prothrombin Time 20.6sec (8.1-12.5) Prothromb Time International Ratio 1.90ratio Sodium Level 137mEq/L (134-144) Potassium Level 4.3mEq/L (3.5-5.2) Chloride Level 102mEq/L (97-108) Carbon Dioxide Level 19mmol/L (18-29) Blood Urea Nitrogen 34mg/dL (8-27) Creatinine 2.11mg/dL (0.76-1.27) Estimat Glomerular Filtration Rate 32mL/min (>59) Glucose Level 147mg/dL (60-99) Lactic Acid Level 1.4mmol/L (0.4-2.0) Calcium Level 9.4mg/dL (8.5-10.1) Magnesium Level 1.8mg/dL (1.6-2.6) Total Bilirubin 0.6mg/dL (0.0-1.2) Aspartate Amino Transf (AST/SGOT) 25U/L (0-50) Alanine Aminotransferase (ALT/SGPT) 28U/L (0-44) Alkaline Phosphatase 71U/L (25-160) Total Protein 8.0g/dL (6.4-8.4) Albumin 3.3g/dL (3.4-5.0) Lipase 90U/L (13-60) Hold Red Top Tube Received (Received) Urine Color Yellow (YELLOW) Urine Appearance Hazy (CLEAR,HAZY) Urine pH 5.0 (5.0-8.0) Urine Specific [place] 1.030 (1.003-1.035) Urine Protein 30mg/dL (NEG,TRACE) Urine Glucose (UA) Negativemg/dL (NEGATIVE) Urine Ketones Negativemg/dL (NEGATIVE) Urine Occult Blood Large (NEGATIVE) Urine Nitrite Negative (NEGATIVE) Urine Bilirubin Negative (NEGATIVE) Urine Urobilinogen Normalmg/dL (NORMAL) Urine Leukocyte Esterase Negative (NEGATIVE) Urine RBC >50/hpf (0-2) Urine WBC 0-5/hpf (0-5) Urine Epithelial Cells Occasional/hpf (NONE-MOD) Urine Crystals Uric acid crystals (NONE Urine Bacteria Moderate/hpf (NONE-FEW) Urine Hyaline Casts Occasional/lpf (NONE) Urine Granular Casts Occasional (NONE SEEN) Urine Waxy Casts None seen (NONE SEEN) Urine Red Blood Cell Casts None seen (NONE SEEN) Urine White Blood Cell Casts None seen (NONE SEEN) Urine Mucus None seen (None Seen) Urine Trichomonas None seen (NONE SEEN) Urine Yeast None (NONE SEEN) Urinalysis Comment None Urine Culture Reflexed Not indicated Microbiology 09/15/16 Blood Culture, Received Pending Result Diagram: 09/15/16 1050 09/15/16 1050 PMH COPD on 3 L of oxygen as per day Small bowel obstruction in May 2013 Essential tremor Colon cancer in remission status post right colectomy with ileostomy placement 5 years ago Proximal atrial fibrillation on chronic anticoagulation with warfarin Diabetes mellitus type II Chronic kidney disease stage III COPD Coronary artery disease status post or weight bypass Hypertension Obstructive sleep apnea Surgical History Colectomy with loop ileostomy Four-way CABG in 1987 Appendectomy in 1950 Family History Mom had coronary artery disease. Dad unknown health issues.. Social History Hx Alcohol Use: No Hx Substance Use: No Hx Tobacco Use: Yes (quit 7 years ago but used to smoke 2-3 ppd x 62 yrs) Smoking Status: Former Smoker Exam Vital Signs Vital Sign - Last Date Time Temp Pulse Resp B/P Pulse Ox O2 Delivery O2 Flow Rate FiO2 09/15/16 14:45 Supplement Oxygen 09/15/16 14:39 37.1 105 18 174/78 98 2.00 Exam General: No acute distress, awake, alert O x 3. HEENT: Normocephalic, atraumatic. Oropharynx free of erythema and cobble stoning with moist mucosa. Neck: Supple with full range of motion. Cardiovascular: Regular rate and rhythm Pulmonary: Crackles present at bases of lungs bilaterally. No wheezes or rhonchi. Normal respiratory effort with no use of accessory muscles. Abdomen: Bowel tones present. Mild tenderness around ileostomy site. Ileostomy site covered and there is no surrounding erythema. No hepatosplenomegaly or masses appreciated. Extremities: Trace edema bilaterally lower extremities. Skin: Normal temperature, turgor, and texture; no rash, ulcers, or subcutaneous nodules appreciated. Neurological: Cranial nerves grossly intact. Psychiatric: Normal mood and affect. Alert and oriented to person, place, and time. Lab and Diagnostics Result Diagram: 09/15/16 1050 09/15/16 1050 X-Rays, CTs and MRIs Date of Service: 09/15/16 1003 PROCEDURE: CT KUB ([id number]) IMPRESSION: 1. 4-5 mm right ureteral stone has passed the level of the right UVJ. Moderate to severe right-sided hydronephrosis. 2. Slight, focal irregular wall thickening involving the anterior-superior urinary bladder wall. Recommend cystoscopy to exclude urothelial based neoplastic process. Dictated by: Jamaica Deluca MD, PhD on 09/15/2016 at 10:33 Approved by: Jamaica Deluca MD, PhD on 09/15/2016 at 10:43 Assessment & Plan 81-year-old male with history significant for COPD on 3l home oxygen, CAD, atrial fibrillation, CKD stage III, and colon cancer in remission s/p right colectomy with ileostomy who presents with ongoing leukocytosis as well as acute kidney injury on top of CKD in the setting of known recent right kidney stone and hydronephrosis. # Acute/Ongoing right ureteral stone with associated hydronephrosis, present admission -Appreciate urology consult by Dr. Peguero. Will followup with recs -Continue with supportive care including IV morphine as needed for pain control -Gentle IV fluid -Straining all urine -Continuing Flomax 0.4 mg p.o. daily -Continue IV Ceftriaxone # Acute kidney injury on chronic kidney disease, present admission -IV fluid resuscitation -Followup BMP in am # Chronic anticoagulation with Coumadin. Subtherapeutic on admission -Continue with Coumadin (dose per pharmacy) -Followup daily INR # Diabetes mellitus type II, present admission, stable -We will hold home medications for now. -Humalog low-dose correctional added. # COPD, present admission, stable. -Continue on O2 overnight, 3 L. -Continue on albuterol, Symbicort, Spiriva. # Ileostomy tenderness, present on admission, ongoing: -No increased ostomy output or change in consistency of stool. -Continue to follow -Continue cholestyramine # Atrial fibrillation on chronic anti-coagulation, present on admission, ongoing : -Warfarin as noted above -Continue metoprolol tartrate. # Coronary disease status post CABG, present on admission, stable -Patient is an beta jennifer. -Consider MARIAH inhibitor and statin as an outpatient. Expected length of hospital stay is greater than 2 midnights and likely 2-3 days GI Prophylaxis: Proton Pump Inhibitor VTE Prophylaxis: Sub-Q Heparin (Unfractionated), Theraputic Anticoag with Warfarin Resuscitation Status: CPR: Attempt Resuscitation (discussed and verified with patient) Time spent 60 min Klevin Clayton Sep 15, 2016 19:06
--- NOTE | 2016-09-15 19:10 | NUR ---
Admit to [facility] Pt. transferred to [facility] via gurney at 1430 in stable condition. c/o very mild R flank pain 1/10 and intermittent mild nausea. Denies chest pain, or SOB. Oriented to room and call light. Vitals show hypertension and mild tachycardia (174/78, 105 BPM). MD notified. No tele ordered. Admit and med rec already completed prior to transfer.
--- NOTE | 2016-09-15 19:52 | PCM.CONPHA ---
Subjective Date of Service: Sep 15, 2016 abnormal labs Reason for Pharmacy Consult: Anticoagulation Management Objective Vital Signs Date Time Temp Pulse Resp B/P Pulse Ox O2 Delivery O2 Flow Rate FiO2 09/15/16 14:45 Supplement Oxygen 09/15/16 14:39 37.1 105 18 174/78 98 Nasal Cannula 2.00 09/15/16 12:47 95 20 122/78 94 Nasal Cannula 2 09/15/16 09:56 98 16 128/90 98 Nasal Cannula 3 09/15/16 09:37 36.4 85 20 134/90 97 Room Air Weight (Kilograms): 85.000 Height (Feet): 5 Height (Inches): 10.00 Test 09/15/16 10:50 09/15/16 12:30 White Blood Count 13.5th/mm3 (3.8-10.1) Red Blood Count 3.84mil/mm3 (4.40-5.80) Hemoglobin 11.9g/dL (13.8-17.2) Hematocrit 36.8% (41.0-50.0) Mean Corpuscular Volume 95.8fL (81-100) Mean Corpuscular Hemoglobin 31.0pg (27.0-35.0) Mean Corpuscular Hemoglobin Concent 32.3% (32.0-37.0) Red Cell Distribution Width 12.6% (12.3-15.4) Platelet Count 363bil/L (150-400) Neutrophils (%) (Auto) 75.3% (40-74) Lymphocytes (%) (Auto) 12.7% (14-46) Monocytes (%) (Auto) 10.7% (4-12) Eosinophils (%) (Auto) 0.7% (0-5) Basophils (%) (Auto) 0.1% (0-3) Prothrombin Time 20.6sec (8.1-12.5) Prothromb Time International Ratio 1.90ratio Sodium Level 137mEq/L (134-144) Potassium Level 4.3mEq/L (3.5-5.2) Chloride Level 102mEq/L (97-108) Carbon Dioxide Level 19mmol/L (18-29) Blood Urea Nitrogen 34mg/dL (8-27) Creatinine 2.11mg/dL (0.76-1.27) Estimat Glomerular Filtration Rate 32mL/min (>59) Glucose Level 147mg/dL (60-99) Lactic Acid Level 1.4mmol/L (0.4-2.0) Calcium Level 9.4mg/dL (8.5-10.1) Magnesium Level 1.8mg/dL (1.6-2.6) Total Bilirubin 0.6mg/dL (0.0-1.2) Aspartate Amino Transf (AST/SGOT) 25U/L (0-50) Alanine Aminotransferase (ALT/SGPT) 28U/L (0-44) Alkaline Phosphatase 71U/L (25-160) Total Protein 8.0g/dL (6.4-8.4) Albumin 3.3g/dL (3.4-5.0) Lipase 90U/L (13-60) Hold Red Top Tube Received (Received) Urine Color Yellow (YELLOW) Urine Appearance Hazy (CLEAR,HAZY) Urine pH 5.0 (5.0-8.0) Urine Specific [place] 1.030 (1.003-1.035) Urine Protein 30mg/dL (NEG,TRACE) Urine Glucose (UA) Negativemg/dL (NEGATIVE) Urine Ketones Negativemg/dL (NEGATIVE) Urine Occult Blood Large (NEGATIVE) Urine Nitrite Negative (NEGATIVE) Urine Bilirubin Negative (NEGATIVE) Urine Urobilinogen Normalmg/dL (NORMAL) Urine Leukocyte Esterase Negative (NEGATIVE) Urine RBC >50/hpf (0-2) Urine WBC 0-5/hpf (0-5) Urine Epithelial Cells Occasional/hpf (NONE-MOD) Urine Crystals Uric acid crystals (NONE Urine Bacteria Moderate/hpf (NONE-FEW) Urine Hyaline Casts Occasional/lpf (NONE) Urine Granular Casts Occasional (NONE SEEN) Urine Waxy Casts None seen (NONE SEEN) Urine Red Blood Cell Casts None seen (NONE SEEN) Urine White Blood Cell Casts None seen (NONE SEEN) Urine Mucus None seen (None Seen) Urine Trichomonas None seen (NONE SEEN) Urine Yeast None (NONE SEEN) Urinalysis Comment None Urine Culture Reflexed Not indicated Assessment/Plan Assessment/Plan WARFARIN MANAGEMENT A\ 81yo m admitted for kidney stone with past medical history of CABG, COPD, Colon CA w/ ileostomy Taking Warfarin for AFIB Goal INR 2-3 current INR 1.9 Hct=36.8 Plt= 363 Home Warfarin dose 8mg Mon, Fri 6mg Tu,,Th, Sa,Alfonso No bleeding reported by RN Currently receiving Heparin 5000units subq prophylaxis P\ Pt has not taken Warfarin today will continue home dose Warfarin 6mg po x1 tonight and check INR in the AM If therapeutic Heparin can be stopped Misael Denney [facility] Sep 15, 2016 19:52
[2016-09-15] MEDS ORDERED: Albuterol 2.5 mg/3 mL Inhalation Solution NEB PRN ×2 (20:00)
[2016-09-15] MEDS ORDERED: Budesonide-Formot 160-4.5 mCg 6.9 Gm Inhaler INHALATION SCH (20:30)
[2016-09-15 20:40] VITALS: BP 147/84; PULSE 74; RESP 20; O2SAT 96
[2016-09-15] MEDS: Fluticasone-Salmererol 250-50 Inhaler INHALATION SCH (20:57)
[2016-09-15] MEDS: Insulin Human REGular 300 Unit/3 mL Inj SUBQ SCH (20:58)
[2016-09-15] MEDS: Cholestyramine Resin Powder 4 Gm Packet PO SCH (23:47)
[2016-09-15] MEDS: Heparin 5,000 Unit/mL Inj SUBQ SCH (23:47)
[2016-09-16 00:30] VITALS: BP 160/83; PULSE 60; RESP 16; O2SAT 98
[2016-09-16 05:20] VITALS: BP 148/80; PULSE 68; RESP 16; O2SAT 99
[2016-09-16 05:58] LABS: BASOPHILS % (AUTO) 0.2 % (0-3); EOSINOPHILS % (AUTO) 2.3 % (0-5); MONOCYTES % (AUTO) 11.6 % (4-12); Mean Corpuscular Hemoglobin 30.6 pg (27.0-35.0); Mean Corpuscular Volume 96.8 fL (81-100); NEUTROPHILS % (AUTO) 70.1 % (40-74); Platelet Count 349 bil/L (150-400)
[2016-09-16 06:17] LABS: INR 2.24 ratio
[2016-09-16] MEDS: Insulin Human REGular 300 Unit/3 mL Inj SUBQ SCH ×4 (07:30→21:29)
[2016-09-16] MEDS: Fluticasone-Salmererol 250-50 Inhaler INHALATION SCH ×2 (08:49→21:28)
[2016-09-16] MEDS: Tiotropium 18mcg/Cap 5 Capsule Inhaler Kit INHALATION SCH (08:49)
[2016-09-16] MEDS: Pantoprazole 20 mg ER24 Tablet PO SCH (08:51)
[2016-09-16] MEDS: Heparin 5,000 Unit/mL Inj SUBQ SCH (08:53)
[2016-09-16] MEDS: Cholestyramine Resin Powder 4 Gm Packet PO SCH ×3 (10:41→21:28)
[2016-09-16] MEDS: cefTRIAXone Inj 2,000 MG in Dextrose 5% Minibag Plus 50 ML IV SCH (11:50)
[2016-09-16 13:20] VITALS: BP 114/78; PULSE 55; RESP 16; O2SAT 95
--- NOTE | 2016-09-16 14:02 | PCM.PHAPRO ---
Progress Date of Service: Sep 16, 2016 Warfarin dosing INR = 2.24, hct=36.8, plts 363. Pt continues on warfarin therapy for afib. INR today is therapeutic (goal 2-3) . Pt also on subcut heparin, paged hospitalist to potentially stop. Will give warfarin 6mg PO tonight. INRs are ordered. Pharmacy will continue to follow this pt for warfarin therapy. Bria Garrison PharmD Sep 16, 2016 14:02
--- NOTE | 2016-09-16 16:56 | NUR ---
Social Work: Initial Assessment / Readiness for d/c Data: Pt is a 81 y/o male admitted for kidney stone obstructed. Pt's [facility] is [facility], pt's insurance is Medicare with [employer] supp. EMR reviewed. Readmit score not listed. PRINCIPAL GIFTS OFFICER met with pt at bedside, role explained. Pt states he lives in [place] with his in a single story home where he uses a walker, drives, has no hx of HH or SNF, no LTC or VA benefits, and is not a caregiver. Pt has home O2 with [employer]. No d/c planning needs anticipated. PRINCIPAL GIFTS OFFICER will continue to follow if needs arise. Assessment: Pt who is independent at baseline. Plan: Pt will d/c home via POV when medically stable, MD states possibly today or tomorrow. HARDEEP Stephens Addendum: 09/16/16 at 1701 by VAL SUAREZ Amended: Links added.
--- NOTE | 2016-09-16 17:13 | PCM.PNMED ---
Subjective Date of Service Sep 16, 2016 Subjective Denies any new issues/complaints. Exam Vital Signs Vital Sign - Last Date Time Temp Pulse Resp B/P Pulse Ox O2 Delivery O2 Flow Rate FiO2 09/16/16 13:20 36.4 55 16 114/78 95 Nasal Cannula 2.00 Intake and Output 09/15/16 09/15/16 09/16/16 Cumulative From/Thru 15:00 23:00 07:00 09/15/16 09:37 - 09/16/16 06:31 Intake Total 500 ml 236 ml 1013 ml 1749 ml Output Total 350 ml 800 ml 1150 ml Balance 500 ml -114 ml 213 ml 599 ml Intake Oral 236 ml 400 ml 636 ml IV Total 500 ml 613 ml 1113 ml Output Urine Total 350 ml 800 ml 1150 ml # Bowel Movements 0 0 Exam General: No acute distress, awake, alert O x 3. HEENT: Normocephalic, atraumatic. Oropharynx free of erythema and cobble stoning with moist mucosa. Neck: Supple with full range of motion. Cardiovascular: Regular rate and rhythm Pulmonary: Crackles present at bases of lungs bilaterally. No wheezes or rhonchi. Normal respiratory effort with no use of accessory muscles. Abdomen: Bowel tones present. Mild tenderness around ileostomy site. Ileostomy site covered and there is no surrounding erythema. No hepatosplenomegaly or masses appreciated. Extremities: Trace edema bilaterally lower extremities. Skin: Normal temperature, turgor, and texture; no rash, ulcers, or subcutaneous nodules appreciated. Neurological: Cranial nerves grossly intact. Psychiatric: Normal mood and affect. Alert and oriented to person, place, and time. IVs and Medications Medications Reviewed: Medications were reviewed in detail Lab and Diagnostics Result Diagram: 09/16/16 0540 09/16/16 0540 X-Rays, CTs and MRIs Date of Service: 09/15/16 1003 PROCEDURE: CT KUB ([id number]) IMPRESSION: 1. 4-5 mm right ureteral stone has passed the level of the right UVJ. Moderate to severe right-sided hydronephrosis. 2. Slight, focal irregular wall thickening involving the anterior-superior urinary bladder wall. Recommend cystoscopy to exclude urothelial based neoplastic process. Dictated by: Jamaica Deluca MD, PhD on 09/15/2016 at 10:33 Approved by: Jamaica Deluca MD, PhD on 09/15/2016 at 10:43 Assessment & Plan 81-year-old male with history significant for COPD on 3l home oxygen, CAD, atrial fibrillation, CKD stage III, and colon cancer in remission s/p right colectomy with ileostomy who presents with ongoing leukocytosis as well as acute kidney injury on top of CKD in the setting of known recent right kidney stone and hydronephrosis. # Acute/Ongoing right ureteral stone with associated hydronephrosis, present admission -Appreciate urology consult by Dr. Peguero. Will followup with recs -Continue with supportive care including IV morphine as needed for pain control -Gentle IV fluid -Straining all urine -Continuing Flomax 0.4 mg p.o. daily -Continue IV Ceftriaxone # Acute kidney injury on chronic kidney disease, present admission. Improved -IV fluid resuscitation -Followup BMP in am # Chronic anticoagulation with Coumadin. Subtherapeutic on admission - Therapeutic now -Continue with Coumadin (dose per pharmacy) -Followup daily INR # Diabetes mellitus type II, present admission, stable -We will hold home medications for now. -Humalog correctional # COPD, present admission, stable. -Continue on O2 overnight, 3 L. -Continue on albuterol, Symbicort, Spiriva. # Ileostomy tenderness, present on admission, ongoing: -No increased ostomy output or change in consistency of stool. -Continue to follow -Continue cholestyramine # Atrial fibrillation on chronic anti-coagulation, present on admission, ongoing : -Warfarin as noted above -Continue metoprolol tartrate. # Coronary disease status post CABG, present on admission, stable -Patient is an beta jennifer. -Consider MARIAH inhibitor and statin as an outpatient. Dispo: 1-2 days GI Prophylaxis: Proton Pump Inhibitor VTE Prophylaxis: Sub-Q Heparin (Unfractionated), Theraputic Anticoag with Warfarin VTE Mechanical Devices: Intermittant Pneumatic CD Resuscitation Status: CPR: Attempt Resuscitation (discussed and verified with patient) Kelvin Clayton Sep 16, 2016 17:13
--- NOTE | 2016-09-16 18:41 | NUR ---
Dayshift Uneventful shift, pt resting in bed for most. Self changes colostomy as needed. Awaiting kidney stone to pass, urine strained with no evidence of kidney stones. Pt denies any pain and SOB. Continuing to monitor.
[2016-09-16 21:31] VITALS: BP 166/82; PULSE 66; RESP 20; O2SAT 97
[2016-09-17 04:59] LABS: Mean Corpuscular Hemoglobin 30.4 pg (27.0-35.0); Mean Corpuscular Volume 97.1 fL (81-100)
[2016-09-17 05:05] VITALS: BP 166/83; PULSE 54; RESP 20; O2SAT 97
--- NOTE | 2016-09-17 05:17 | NUR ---
Uneventful Night: Pt had an uneventful night, no c/o pain, chest pain or SOB. Pt slept most of the night, pleasant and cooperative with care.
[2016-09-17 05:21] LABS: INR 2.24 ratio
[2016-09-17] MEDS: Cholestyramine Resin Powder 4 Gm Packet PO SCH ×4 (08:30→20:31)
[2016-09-17] MEDS: Insulin Human REGular 300 Unit/3 mL Inj SUBQ SCH ×4 (08:31→22:00)
[2016-09-17] MEDS: Pantoprazole 20 mg ER24 Tablet PO SCH (08:32)
[2016-09-17] MEDS: Tiotropium 18mcg/Cap 5 Capsule Inhaler Kit INHALATION SCH (08:32)
[2016-09-17] MEDS: Fluticasone-Salmererol 250-50 Inhaler INHALATION SCH ×2 (08:32→20:31)
[2016-09-17] MEDS: cefTRIAXone Inj 2,000 MG in Dextrose 5% Minibag Plus 50 ML IV SCH (11:42)
--- NOTE | 2016-09-17 11:46 | PCM.PHAPRO ---
Progress Date of Service: Sep 17, 2016 Warfarin dosing INR = 2.24, plts = 341, hct = 36.4 Pt continues on warfarin for afib. INR therapeutic today (goal 2-3). Will give warfarin 8mg PO tonight (same as pt's home dose). INRs are ordered. Pharmacy will follow this pt's warfarin therapy. Date Sep 16-Sep 17-Sep INR 1.9 2.24 2.24 INR change 0.34 Warf Dose 6 6MG 8MG Bria Garrison PharmD Sep 17, 2016 11:46
[2016-09-17 13:59] VITALS: BP 154/74; PULSE 60; RESP 20; O2SAT 98
--- NOTE | 2016-09-17 15:25 | NUR ---
Colostomy/Stoma Care Pt colostomy appliance is starting to leak on the lower side. Pt refuses staff assistance in changing, made aware that we are more than willing to help if desired. Pt awaiting to change bag/appliance. in room to change colostomy bag and provide stoma care. declines assistance. Stoma is protruding from abdomen about 2". Red in appearance. Small maceration on Top right, r/t adhesive used in the past and unhealed. Skins is red and irritated on lower portion of stoma r/t leaking. applying own barrier cream for protection.
--- NOTE | 2016-09-17 18:11 | PCM.PNMED ---
Subjective Date of Service Sep 17, 2016 Subjective Denies any new issues/complaints. Exam Vital Signs Vital Sign - Last Date Time Temp Pulse Resp B/P Pulse Ox O2 Delivery O2 Flow Rate FiO2 09/17/16 13:59 36.6 60 20 154/74 98 Nasal Cannula 2.00 Intake and Output 09/16/16 09/16/16 09/17/16 Cumulative From/Thru 15:00 23:00 07:00 09/15/16 09:37 - 09/16/16 21:41 Intake Total 836 ml 2585 ml Output Total 353 ml 1503 ml Balance 483 ml 1082 ml Intake Oral 836 ml 1472 ml IV Total 1113 ml Output Urine Total 350 ml 1500 ml Stool Total 3 ml 3 ml # Bowel Movements 0 Exam General: No acute distress, awake, alert O x 3. HEENT: Normocephalic, atraumatic. Neck: Supple with full range of motion. Cardiovascular: Regular rate and rhythm Pulmonary: Crackles present at bases of lungs bilaterally. No wheezes or rhonchi. Normal respiratory effort with no use of accessory muscles. Abdomen: Bowel tones present. Ileostomy site covered and there is no surrounding erythema. Non-tender Extremities: Trace edema bilaterally lower extremities. Skin: Normal temperature, turgor, and texture; no rash, ulcers, or subcutaneous nodules appreciated. Neurological: Cranial nerves grossly intact. Psychiatric: Normal mood and affect. Alert and oriented to person, place, and time. IVs and Medications Medications Reviewed: Medications were reviewed in detail Lab and Diagnostics Result Diagram: 09/17/16 0450 09/17/16 0450 X-Rays, CTs and MRIs Date of Service: 09/15/16 1003 PROCEDURE: CT KUB ([id number]) IMPRESSION: 1. 4-5 mm right ureteral stone has passed the level of the right UVJ. Moderate to severe right-sided hydronephrosis. 2. Slight, focal irregular wall thickening involving the anterior-superior urinary bladder wall. Recommend cystoscopy to exclude urothelial based neoplastic process. Dictated by: Jamaica Deluca MD, PhD on 09/15/2016 at 10:33 Approved by: Jamaica Deluca MD, PhD on 09/15/2016 at 10:43 Assessment & Plan 81-year-old male with history significant for COPD on 3l home oxygen, CAD, atrial fibrillation, CKD stage III, and colon cancer in remission s/p right colectomy with ileostomy who presents with ongoing leukocytosis as well as acute kidney injury on top of CKD in the setting of known recent right kidney stone and hydronephrosis. # Acute/Ongoing right ureteral stone with associated hydronephrosis, present admission -Appreciate urology consult by Dr. Peguero. Will followup with recs -Continue with supportive care including IV morphine as needed for pain control -Gentle IV fluid -Straining all urine -Continuing Flomax 0.4 mg p.o. daily -Continue IV Ceftriaxone # Acute kidney injury on chronic kidney disease, present admission. Improved -IV fluid resuscitation -Followup BMP in am # Chronic anticoagulation with Coumadin. Subtherapeutic on admission -Therapeutic now -Continue with Coumadin (dose per pharmacy) -Followup daily INR # Diabetes mellitus type II, present admission, stable -We will hold home medications for now. -Humalog correctional # COPD, present admission, stable. -Continue on O2 overnight, 3 L. -Continue on albuterol, Symbicort, Spiriva. # Ileostomy tenderness, present on admission, ongoing: -No increased ostomy output or change in consistency of stool. -Continue to follow -Continue cholestyramine # Atrial fibrillation on chronic anti-coagulation, present on admission, ongoing : -Warfarin as noted above -Continue metoprolol tartrate. # Coronary disease status post CABG, present on admission, stable -Patient is an beta jennifer. -Consider MARIAH inhibitor and statin as an outpatient. Dispo: 1-2 days GI Prophylaxis: Proton Pump Inhibitor VTE Prophylaxis: Sub-Q Heparin (Unfractionated), Theraputic Anticoag with Warfarin VTE Mechanical Devices: Intermittant Pneumatic CD Resuscitation Status: CPR: Attempt Resuscitation (discussed and verified with patient) Kelvin Clayton Sep 17, 2016 18:11
[2016-09-17 20:36] VITALS: BP 144/78; PULSE 62; RESP 20; O2SAT 99
--- NOTE | 2016-09-18 04:00 | NUR ---
PT ACTIVITY Pt has remained in room during shift. Pt up to BR a couple times to empty ostomy. Pt states able to tolerate OOB activity better. Pt also using using urinal in bed or at bedside. Urine strained. Continue to monitor. Call light in reach. Intentional rounding.
[2016-09-18 04:50] LABS: INR 2.58 ratio
[2016-09-18 04:51] VITALS: BP 143/75; PULSE 56; RESP 20; O2SAT 98
[2016-09-18] MEDS: Insulin Human REGular 300 Unit/3 mL Inj SUBQ SCH ×4 (07:30→20:50)
--- NOTE | 2016-09-18 07:56 | PCM.PHAPRO ---
Progress Warfarin dosing 14-Timothy 15-Timothy 16-Timothy 17-Timothy 1.9 2.24 2.24 2.58 0.34 0.34 6 6MG 8MG 6 Bakari Al Pharm.D Sep 18, 2016 07:56
[2016-09-18] MEDS: Tiotropium 18mcg/Cap 5 Capsule Inhaler Kit INHALATION SCH (08:01)
[2016-09-18] MEDS: Fluticasone-Salmererol 250-50 Inhaler INHALATION SCH ×2 (08:01→20:41)
[2016-09-18] MEDS: Pantoprazole 20 mg ER24 Tablet PO SCH (08:01)
[2016-09-18] MEDS: Cholestyramine Resin Powder 4 Gm Packet PO SCH ×3 (08:30→20:41)
--- NOTE | 2016-09-18 08:30 | NUR ---
MERLIN signed. HARDEEP Maloney
[2016-09-18] MEDS: cefTRIAXone Inj 2,000 MG in Dextrose 5% Minibag Plus 50 ML IV SCH (12:30)
[2016-09-18 13:30] VITALS: BP 154/78; PULSE 54; RESP 20; O2SAT 98
--- NOTE | 2016-09-18 17:13 | PCM.PNMED ---
Subjective Date of Service Sep 18, 2016 Subjective Denies any new issues/complaints. Exam Vital Signs Vital Sign - Last Date Time Temp Pulse Resp B/P Pulse Ox O2 Delivery O2 Flow Rate FiO2 09/18/16 13:30 36.3 54 20 154/78 98 Nasal Cannula 2.00 Intake and Output 09/17/16 09/17/16 09/18/16 Cumulative From/Thru 15:00 23:00 07:00 09/15/16 09:37 - 09/18/16 06:18 Intake Total 376 ml 1160 ml 773 ml 4894 ml Output Total 600 ml 300 ml 1150 ml 3553 ml Balance -224 ml 860 ml -377 ml 1341 ml Intake Oral 318 ml 1160 ml 773 ml 3723 ml IV Total 58 ml 1171 ml Output Urine Total 600 ml 300 ml 1150 ml 3550 ml Stool Total 3 ml # Bowel Movements 1 1 2 Exam General: No acute distress, awake, alert O x 3. HEENT: Normocephalic, atraumatic. Neck: Supple with full range of motion. Cardiovascular: Regular rate and rhythm Pulmonary: Crackles present at bases of lungs bilaterally. No wheezes or rhonchi. Normal respiratory effort with no use of accessory muscles. Abdomen: Bowel tones present. Ileostomy site covered and there is no surrounding erythema. Non-tender Extremities: Trace edema bilaterally lower extremities. Skin: Normal temperature, turgor, and texture; no rash, ulcers, or subcutaneous nodules appreciated. Neurological: Cranial nerves grossly intact. Psychiatric: Normal mood and affect. Alert and oriented to person, place, and time. IVs and Medications Medications Reviewed: Medications were reviewed in detail Lab and Diagnostics Result Diagram: 09/17/16 0450 09/18/16 0415 X-Rays, CTs and MRIs Date of Service: 09/15/16 1003 PROCEDURE: CT KUB ([id number]) IMPRESSION: 1. 4-5 mm right ureteral stone has passed the level of the right UVJ. Moderate to severe right-sided hydronephrosis. 2. Slight, focal irregular wall thickening involving the anterior-superior urinary bladder wall. Recommend cystoscopy to exclude urothelial based neoplastic process. Dictated by: Jamaica Deluca MD, PhD on 09/15/2016 at 10:33 Approved by: Jamaica Deluca MD, PhD on 09/15/2016 at 10:43 Assessment & Plan 81-year-old male with history significant for COPD on 3l home oxygen, CAD, atrial fibrillation, CKD stage III, and colon cancer in remission s/p right colectomy with ileostomy who presents with ongoing leukocytosis as well as acute kidney injury on top of CKD in the setting of known recent right kidney stone and hydronephrosis. # Acute/Ongoing right ureteral stone with associated hydronephrosis, present admission -Appreciate urology consult by Dr. Peguero. Will followup with recs -Continue with supportive care including IV morphine as needed for pain control -Straining all urine -Continuing Flomax 0.4 mg p.o. daily -Stop IV Ceftriaxone given no obvious sign of active infection # Acute kidney injury on chronic kidney disease, present admission. Improving -IV fluid resuscitation -Followup BMP # Chronic anticoagulation with Coumadin. Subtherapeutic on admission -Therapeutic now -Continue with Coumadin (dose per pharmacy) -Followup daily INR # Diabetes mellitus type II, present admission, stable -We will hold home medications for now. -Humalog correctional # COPD, present admission, stable. -Continue on O2 overnight, 3 L. -Continue on albuterol, Symbicort, Spiriva. # Ileostomy tenderness, present on admission, ongoing: -No increased ostomy output or change in consistency of stool. -Continue to follow -Continue cholestyramine # Atrial fibrillation on chronic anti-coagulation, present on admission, ongoing : -Warfarin as noted above -Continue metoprolol tartrate. # Coronary disease status post CABG, present on admission, stable -Patient is an beta jennifer. -Consider MARIAH inhibitor and statin as an outpatient. Dispo: 1-2 days GI Prophylaxis: Proton Pump Inhibitor VTE Prophylaxis: Sub-Q Heparin (Unfractionated), Theraputic Anticoag with Warfarin VTE Mechanical Devices: Intermittant Pneumatic CD Resuscitation Status: CPR: Attempt Resuscitation (discussed and verified with patient) Kelvin Clayton Sep 18, 2016 17:13
--- NOTE | 2016-09-18 18:00 | NUR ---
Elimination/activity Pt has been up to BR a couple times to empty ostomy, declines offers of assistance from staff. Pt reports, prefers to self manage. Pt uses urinal standing at bedside or ambulates to BR. Urine strained. Steady gait noted. Call light with in reach, will continue to monitor
[2016-09-18 20:49] VITALS: BP 151/80; PULSE 62; RESP 20; O2SAT 98
--- NOTE | 2016-09-19 05:00 | NUR ---
PT ACTIVITY/OUTPUT Pt has been up in room and to BR independently. Pt tolerates activity well. Pt provided self care of ileostomy. Pt voiding per urinal, urine strained, no obvious stone observed at this time. Continue to monitor. Call light in reach. Intentional rounding.
[2016-09-19 05:04] VITALS: BP 150/81; PULSE 55; RESP 18; O2SAT 98
[2016-09-19 06:35] LABS: INR 2.91 ratio
[2016-09-19] MEDS: Insulin Human REGular 300 Unit/3 mL Inj SUBQ SCH ×4 (07:30→20:24)
--- NOTE | 2016-09-19 08:00 | PCM.PHAPRO ---
Progress Warfarin dosing WARFARIN DOSING PER PHARMACY Date Sep 16Sep 17Sep 18Sep 19 INR 1.9 2.24 2.24 2.58 2.91 INR change 0.34 0.34 0.33 Warf Dose 6 6MG 8MG 6 3mg Will reduce the dose by 50% tonight to account for increase in INR. Will give one dose of warfarin 3mg PO x1 Letitia Candelario PharmD Sep 19, 2016 08:00
[2016-09-19] MEDS: Tiotropium 18mcg/Cap 5 Capsule Inhaler Kit INHALATION SCH (08:27)
[2016-09-19] MEDS: Pantoprazole 20 mg ER24 Tablet PO SCH (08:27)
[2016-09-19] MEDS: Fluticasone-Salmererol 250-50 Inhaler INHALATION SCH ×2 (08:27→20:25)
[2016-09-19] MEDS: Cholestyramine Resin Powder 4 Gm Packet PO SCH ×3 (08:30→21:20)
--- NOTE | 2016-09-19 08:58 | NUR ---
Social Work-readiness for discharge: Data:EMR Reviewed. Pt is on day 4 of hospitalization for kidney stone per H&P. Pt is not medically stable anticipate 1-2 more days. Pt resides at home with his spouse and has home O2. Pt has ileostomy that he manages on his own. Per RN notes, pt has been up independent in his room. Pt declines any SW needs. Pt's family to provide transport home. No anticipated discharge needs. SW will continue to follow if needs arise. Assessment:Pt who is independent at baseline. Plan:Pt to discharge home when medically stable via POV. No anticipated discharge needs. SW will continue to follow if needs arise. HARDEEP Maloney
--- NOTE | 2016-09-19 10:30 | NUR ---
Skin rash Pt reported a itch red rash on inner R thigh, sts has used powder in the past when this has occurred. MD made aware. new order received. Will administer powder once received from pharmacy. Call light in reach, will continue to monitor.
[2016-09-19] MEDS: Nystatin 100,000 Unit/Gm 15 Gm Powder TOPICAL SCH ×2 (11:36→20:25)
[2016-09-19 15:16] VITALS: BP 148/81; PULSE 69; O2SAT 98
--- NOTE | 2016-09-19 16:31 | PCM.PNMED ---
Subjective Date of Service Sep 19, 2016 Subjective Denies any new issues/complaints. Exam Vital Signs Vital Sign - Last Date Time Temp Pulse Resp B/P Pulse Ox O2 Delivery O2 Flow Rate FiO2 09/19/16 15:16 36.4 69 148/81 98 3.00 09/19/16 08:15 Supplement Oxygen 09/19/16 05:04 18 Intake and Output 09/18/16 09/18/16 09/19/16 Cumulative From/Thru 15:00 23:00 07:00 09/15/16 09:37 - 09/19/16 06:01 Intake Total 1400 ml 513 ml 6807 ml Output Total 550 ml 825 ml 4928 ml Balance 850 ml -312 ml 1879 ml Intake Oral 1400 ml 513 ml 5636 ml IV Total 1171 ml Output Urine Total 550 ml 825 ml 4925 ml Stool Total 3 ml # Bowel Movements 1 3 Exam General: No acute distress, awake, alert O x 3. HEENT: Normocephalic, atraumatic. Neck: Supple with full range of motion. Cardiovascular: Regular rate and rhythm Pulmonary: Crackles present at bases of lungs bilaterally. No wheezes or rhonchi. Normal respiratory effort with no use of accessory muscles. Abdomen: Bowel tones present. Ileostomy site covered and there is no surrounding erythema. Non-tender Extremities: Trace edema bilaterally lower extremities. Skin: Normal temperature, turgor, and texture; no rash, ulcers, or subcutaneous nodules appreciated. Neurological: Cranial nerves grossly intact. Psychiatric: Normal mood and affect. Alert and oriented to person, place, and time. IVs and Medications Medications Reviewed: Medications were reviewed in detail Lab and Diagnostics Result Diagram: 09/17/16 0450 09/18/16 0415 X-Rays, CTs and MRIs Date of Service: 09/15/16 1003 PROCEDURE: CT KUB ([id number]) IMPRESSION: 1. 4-5 mm right ureteral stone has passed the level of the right UVJ. Moderate to severe right-sided hydronephrosis. 2. Slight, focal irregular wall thickening involving the anterior-superior urinary bladder wall. Recommend cystoscopy to exclude urothelial based neoplastic process. Dictated by: Jamacia Deluca MD, PhD on 09/15/2016 at 10:33 Approved by: Jamaica Deluca MD, PhD on 09/15/2016 at 10:43 Assessment & Plan 81-year-old male with history significant for COPD on 3l home oxygen, CAD, atrial fibrillation, CKD stage III, and colon cancer in remission s/p right colectomy with ileostomy who presents with ongoing leukocytosis as well as acute kidney injury on top of CKD in the setting of known recent right kidney stone and hydronephrosis. # Acute/Ongoing right ureteral stone with associated hydronephrosis, present admission -Appreciate urology consult by Dr. Peguero. Will followup with recs -Continue with supportive care including IV morphine as needed for pain control -Straining all urine -Continuing Flomax 0.4 mg p.o. daily -Stopped IV Ceftriaxone on 09/18/16 given no obvious sign of active infection -Followup with Dr. Peguero on Tuesday for possible new or further recommendations # Acute kidney injury on chronic kidney disease, present admission. Improving -Followup BMP # Chronic anticoagulation with Coumadin. Subtherapeutic on admission -Therapeutic now -Continue with Coumadin (dose per pharmacy) -Followup daily INR # Diabetes mellitus type II, present admission, stable -We will hold home medications for now. -Humalog correctional # COPD, present admission, stable. -Continue on O2 overnight, 3 L. -Continue on albuterol, Symbicort, Spiriva. # Ileostomy tenderness, present on admission, ongoing: -No increased ostomy output or change in consistency of stool. -Continue to follow -Continue cholestyramine # Atrial fibrillation on chronic anti-coagulation, present on admission, ongoing : -Warfarin as noted above -Continue metoprolol tartrate. # Coronary disease status post CABG, present on admission, stable -Patient is an beta jennifer. -Consider MARIAH inhibitor and statin as an outpatient. Dispo: 1-2 days GI Prophylaxis: Proton Pump Inhibitor VTE Prophylaxis: Sub-Q Heparin (Unfractionated), Theraputic Anticoag with Warfarin VTE Mechanical Devices: Intermittant Pneumatic CD Resuscitation Status: CPR: Attempt Resuscitation (discussed and verified with patient) Kelvin Clayton Sep 19, 2016 16:31
--- NOTE | 2016-09-19 18:00 | NUR ---
Elimination Pt up to BR a times x2 to empty ostomy, prefers to self manage Ileostomy appliance. Uses urinal standing at bedside or ambulates to BR. Urine strained. No stones passed. Will continue to monitor.
[2016-09-19 20:53] VITALS: BP 135/75; PULSE 70; RESP 18; O2SAT 99
[2016-09-20 04:43] VITALS: BP 159/87; PULSE 55; RESP 18; O2SAT 99
--- NOTE | 2016-09-20 05:59 | NUR ---
Uneventful night: Pt was able to sleep many hours of the night. No reports of pain. Urine being strained. Cooperative with care, using call light for needs.
[2016-09-20 06:45] LABS: BASOPHILS % (AUTO) 0.5 % (0-3); EOSINOPHILS % (AUTO) 4.3 % (0-5); MONOCYTES % (AUTO) 11.8 % (4-12); Mean Corpuscular Hemoglobin 30.2 pg (27.0-35.0); Mean Corpuscular Volume 94.4 fL (81-100); NEUTROPHILS % (AUTO) 55.5 % (40-74); Platelet Count 315 bil/L (150-400)
[2016-09-20 06:54] LABS: INR 2.79 ratio
[2016-09-20 07:07] LABS: Magnesium 1.5 mg/dL (1.6-2.6)
[2016-09-20] MEDS: Insulin Human REGular 300 Unit/3 mL Inj SUBQ SCH ×2 (07:30→11:22)
[2016-09-20] MEDS ORDERED: Magnesium Sulf 2 Gm/50mL Water 2 GM in IV Premix 1 EACH IV ONE (08:35)
[2016-09-20] MEDS: Pantoprazole 20 mg ER24 Tablet PO SCH (09:15)
[2016-09-20] MEDS: Fluticasone-Salmererol 250-50 Inhaler INHALATION SCH (09:16)
[2016-09-20] MEDS: Nystatin 100,000 Unit/Gm 15 Gm Powder TOPICAL SCH (09:16)
[2016-09-20] MEDS: Cholestyramine Resin Powder 4 Gm Packet PO SCH ×2 (09:16→14:30)
[2016-09-20] MEDS: Tiotropium 18mcg/Cap 5 Capsule Inhaler Kit INHALATION SCH (09:16)
--- NOTE | 2016-09-20 11:55 | PCM.DIMED ---
Discharge Instructions Date of Service Sep 20, 2016 Dates of Hospitalization Sep 15, 2016 at 14:12 Discharge Diagnosis Discharge Diagnosis # Acute/Ongoing right ureteral stone with associated hydronephrosis, present admission # Acute kidney injury on chronic kidney disease, present admission. Improving # Chronic anticoagulation with Coumadin. Subtherapeutic on admission # Diabetes mellitus type II, present admission, stable # COPD, present admission, stable. # Ileostomy tenderness, present on admission, ongoing: # Atrial fibrillation on chronic anti-coagulation, present on admission, ongoing : # Coronary disease status post CABG, present on admission, stable Diet Discharge Diet: Low fat, Low Sodium, Heart Healthy, Diabetic Activity Discharge Activity: Limited until seen by PCP Call your provider Call your provider for: Fever or Chills, Shortness of breath, Bleeding, Chest pain, Vomitting, Excessive diarrhea, Weakness (unilateral) Patient Instructions Patient Instructions You were hospitalized to due to acute kidney injury due to right hydronephrosis due to ureteric stone.You were also treated for UTI and completed antibiotics. Urology recommended to continue nonoperative management. Please continue Flomax 0.4 mg daily. Please continue to strain urine. Please take Percocet/ pain medications for pain. Please follow-up with PCP in 3-4 days( or Tuesday) to make sure his kidney function is improving. Initial creatinine on admission 2.11 and creatinine on discharge date 09/20 is 1.29. Continue rest of medications as usual without changes. Follow-up Provider: [facility] Follow-up with PCP in: 1 week Provider: George Peguero MD Follow-up in: 1 week Krystian Kuhn MD Sep 20, 2016 11:54
[2016-09-20] MEDS ORDERED: TAMS0.4C98 PO (11:56)
--- NOTE | 2016-09-20 11:58 | NUR ---
Called [facility] to schedule patient for or Tuesday, she is currently on the other line and will call me back TAZ to set up appointment. Gave Dang cell number to call me on. Updated PROGRAM SERVICES ASSISTANT
[2016-09-20] MEDS ORDERED: OXYC1TAB24 PO ×2 (11:59→14:22)
--- NOTE | 2016-09-20 12:12 | NUR ---
IV Pt reports IV leaking. This RN went to bedside. Mg stopped as IV is leaking, area at IV is red and swollen. IV access discontinued, warm moist heat applied to the area. Pt reports IV was initially tender but the pain resolved quickly, did not feel needed to inform the staff about the discomfort. Reassured pt warm, moist heat and elevation help site area to improve. Call light in reach. Will continue to monitor.
--- NOTE | 2016-09-20 12:13 | PCM.DC.MED ---
Discharge Summary Date of Service Sep 20, 2016 Dates of Hospitalization Date of Hospital Admission Sep 15, 2016 at 14:12 Date of Discharge: Sep 20, 2016 Providers: Admitting Physician: Kelvin Clayton [facility] Attending Physician: Kelvin Clayton Diagnosis at Time of Discharge Diagnosis at Time of Discharge # Acute/Ongoing right ureteral stone with associated hydronephrosis, present admission # Acute kidney injury on chronic kidney disease, present admission. Improving # Chronic anticoagulation with Coumadin. Subtherapeutic on admission # Diabetes mellitus type II, present admission, stable # COPD, present admission, stable. # Ileostomy tenderness, present on admission, ongoing: # Atrial fibrillation on chronic anti-coagulation, present on admission, ongoing : # Coronary disease status post CABG, present on admission, stable Consultations Urology Procedures XRay, CTs & MRIs Date of Service: 09/15/16 1003 PROCEDURE: CT KUB ([id number]) IMPRESSION: 1. 4-5 mm right ureteral stone has passed the level of the right UVJ. Moderate to severe right-sided hydronephrosis. 2. Slight, focal irregular wall thickening involving the anterior-superior urinary bladder wall. Recommend cystoscopy to exclude urothelial based neoplastic process. Dictated by: Jamaica Deluca MD, PhD on 09/15/2016 at 10:33 Approved by: Jamaica Deluca MD, PhD on 09/15/2016 at 10:43 Brief History per HPI 81-year-old male with past medical history significant for COPD on 3 L O2 24 hours per day, benign essential tremor, coronary artery disease s/p CABGx4, CKD stage III, atrial fibrillation on chronic anticoagulation with Coumadin, and colon cancer in remission status post right colectomy with ileostomy who was discharged less than 10 days ago with diagnosis of right sided kidney stone and associated RODOLFO and hydronephrosis. He had followup appointment with his urologist (Dr. Peguero) today at which time his lab work was notable for acutely worse Cr and continued leukocytosis and so he was directed to come to the ED to be admitted to the hospitalist service. Patient otherwise denies any acutely new issues or complaints. He does report worsening SOB since over the past several weeks and was scheduled to see his ice bag assembler (Dr. Villanueva) tomorrow. He also reports about 15 lbs weight loss over the past 2 weeks and otherwise review of systems is negative for new issues. In the ED per urology recommendations he received a dose of IV Ceftriaxone. Hospital Course 81-year-old male with history significant for COPD on 3l home oxygen, CAD, atrial fibrillation, CKD stage III, and colon cancer in remission s/p right colectomy with ileostomy who presents with ongoing leukocytosis as well as acute kidney injury on top of CKD in the setting of known recent right kidney stone and hydronephrosis. # Acute/Ongoing right ureteral stone with associated hydronephrosis, present admission -Appreciate urology consult by Dr. Peguero. Will followup with recs -Continue with supportive care including Percocet as needed for pain control -Continue Straining all urine -Continuing Flomax 0.4 mg p.o. daily . Patient was on Flomax outpatient, patient asked me why he is not getting Flomax inpatient when I took over service today. Noted Flomax was not entered as home medication and never reconciled. Apologized for the missed medication list by admitting team and advised to continue at home. -Stopped IV Ceftriaxone on 09/18/16 given no obvious sign of active infection -Discussed with Dr. Peguero today 09/20. Discharged home today on Flomax and pain medications. Continue to strain urine. Repeat CBC and BMP end of this week with PCP at the residency clinic. Initial admission creatinine 2.11 and creatinine upon discharge 1.[address] Peguero next week. # Acute kidney injury on chronic kidney disease, present admission. Improving -Followup BMP in 1 week with PCP # Chronic anticoagulation with Coumadin. Subtherapeutic on admission -Therapeutic now -Continue with Coumadin # Diabetes mellitus type II, present admission, stable -resume home medications # COPD, present admission, stable. -Continue on O2 overnight, 3 L. -Continue on albuterol, Symbicort, Spiriva. # Ileostomy tenderness, present on admission, ongoing: -No increased ostomy output or change in consistency of stool. -Continue cholestyramine # Atrial fibrillation on chronic anti-coagulation, present on admission, ongoing : -Warfarin as noted above -Continue metoprolol tartrate. # Coronary disease status post CABG, present on admission, stable -Patient is an beta jennifer. -Consider MARIAH inhibitor and statin as an outpatient. Dispo: Discharged home Condition on discharge stable Follow-up PCP in 3-4 days with CBC and BMP Follow-up with urology next week Exam Vital Signs (Last) Date Time Temp Pulse Resp B/P Pulse Ox O2 Delivery O2 Flow Rate FiO2 09/20/16 09:00 Supplement Oxygen 09/20/16 04:43 36.4 55 18 159/87 99 3.00 Exam General: No acute distress, awake, alert O x 3. HEENT: Normocephalic, atraumatic. Neck: Supple with full range of motion. Cardiovascular: Regular rate and rhythm Pulmonary: Crackles present at bases of lungs bilaterally. No wheezes or rhonchi. Normal respiratory effort with no use of accessory muscles. Abdomen: Bowel tones present. Ileostomy site covered and there is no surrounding erythema. Non-tender Extremities: Trace edema bilaterally lower extremities. Skin: Normal temperature, turgor, and texture; no rash, ulcers, or subcutaneous nodules appreciated. Neurological: Cranial nerves grossly intact. Psychiatric: Normal mood and affect. Alert and oriented to person, place, and time. Test 09/15/16 10:50 09/15/16 12:30 09/16/16 05:40 09/20/16 06:30 Hemoglobin A1c 6.4% (4.8-5.6) Lactic Acid Level 1.4mmol/L (0.4-2.0) Lipase 90U/L (13-60) Hold Red Top Tube Received (Received) Urine Color Yellow (YELLOW) Urine Appearance Hazy (CLEAR,HAZY) Urine pH 5.0 (5.0-8.0) Urine Specific [place] 1.030 (1.003-1.035) Urine Protein 30mg/dL (NEG,TRACE) Urine Glucose (UA) Negativemg/dL (NEGATIVE) Urine Ketones Negativemg/dL (NEGATIVE) Urine Occult Blood Large (NEGATIVE) Urine Nitrite Negative (NEGATIVE) Urine Bilirubin Negative (NEGATIVE) Urine Urobilinogen Normalmg/dL (NORMAL) Urine Leukocyte Esterase Negative (NEGATIVE) Urine RBC >50/hpf (0-2) Urine WBC 0-5/hpf (0-5) Urine Epithelial Cells Occasional/hpf (NONE-MOD) Urine Crystals Uric acid crystals (NONE Urine Bacteria Moderate/hpf (NONE-FEW) Urine Hyaline Casts Occasional/lpf (NONE) Urine Granular Casts Occasional (NONE SEEN) Urine Waxy Casts None seen (NONE SEEN) Urine Red Blood Cell Casts None seen (NONE SEEN) Urine White Blood Cell Casts None seen (NONE SEEN) Urine Mucus None seen (None Seen) Urine Trichomonas None seen (NONE SEEN) Urine Yeast None (NONE SEEN) Urinalysis Comment None Urine Culture Reflexed Not indicated Activated Partial Thromboplast Time 41.4sec (22.8-33.0) White Blood Count 7.4th/mm3 (3.8-10.1) Red Blood Count 4.10mil/mm3 (4.40-5.80) Hemoglobin 12.4g/dL (13.8-17.2) Hematocrit 38.7% (41.0-50.0) Mean Corpuscular Volume 94.4fL (81-100) Mean Corpuscular Hemoglobin 30.2pg (27.0-35.0) Mean Corpuscular Hemoglobin Concent 32.0% (32.0-37.0) Red Cell Distribution Width 12.3% (12.3-15.4) Platelet Count 315bil/L (150-400) Neutrophils (%) (Auto) 55.5% (40-74) Lymphocytes (%) (Auto) 27.2% (14-46) Monocytes (%) (Auto) 11.8% (4-12) Eosinophils (%) (Auto) 4.3% (0-5) Basophils (%) (Auto) 0.5% (0-3) Prothrombin Time 30.5sec (8.1-12.5) Prothromb Time International Ratio 2.79ratio Sodium Level 139mEq/L (134-144) Potassium Level 4.8mEq/L (3.5-5.2) Chloride Level 104mEq/L (97-108) Carbon Dioxide Level 21mmol/L (18-29) Blood Urea Nitrogen 25mg/dL (8-27) Creatinine 1.29mg/dL (0.76-1.27) Estimat Glomerular Filtration Rate 57mL/min (>59) Glucose Level 112mg/dL (60-99) Calcium Level 9.7mg/dL (8.5-10.1) Magnesium Level 1.5mg/dL (1.6-2.6) Total Bilirubin 0.3mg/dL (0.0-1.2) Aspartate Amino Transf (AST/SGOT) 29U/L (0-50) Alanine Aminotransferase (ALT/SGPT) 40U/L (0-44) Alkaline Phosphatase 78U/L (25-160) Total Protein 7.4g/dL (6.4-8.4) Albumin 3.4g/dL (3.4-5.0) Discharge Medications Discharge Medications Ascorbate Calcium (Vitamin C) 500 Mg Tablet 1,000 MG PO DAILY (Reported) Budesonide/Formoterol 160-4.5 mcg Inh (Symbicort 160-4.5 mcg Inh) 120 Puff Inhaler 1 PUFF INHALATION BID (Reported) Calcium/Magnesium/Zinc (Izxhmoa-Ksftgixyv-Wdij Tablet) 1 Each Tablet 1 TABLET PO DAILY (Reported) Cholecalciferol (Vitamin D3) (Vitamin D) 1,000 Unit Capsule 1,000 UNITS PO DAILY (Reported) Cholestyramine (Cholestyramine Packet) 4 Gm Packet 2 GM PO TID Prescribed by: JESSICA MARKHAM MD Cyanocobalamin (Vitamin B-12) (Vitamin B-12) 500 Mcg Lozenge 1 TAB PO DAILY ( Reported) Gabapentin (Gabapentin) 300 Mg Capsule 600 MG PO TID (Reported) Glimepiride (Glimepiride) 4 Mg Tablet 0.5 TABLET PO DAILY (Reported) Metoprolol Tartrate (Metoprolol Tartrate) 50 Mg Tablet 50 MG PO DAILY (Reported ) Montelukast (Montelukast) 10 Mg Tablet 10 MG PO DAILY (Reported) Multivits-Min/FA/Lycopene/Lut (Centrum Silver Tablet) 1 Each Tablet 1 EACH PO DAILY (Reported) Pantoprazole DR (Pantoprazole DR) 20 Mg Tablet.dr 20 MG PO QAM (Reported) Potassium (Potassium) 99 Mg Tablet 1 TABLET PO DAILY (Reported) Primidone (Primidone) 50 Mg Tablet 50 MG PO HS (Reported) Tamsulosin (Flomax) 0.4 Mg Capsule 0.4 MG PO DAILY Prescribed by: KRYSTIAN KUHN MD Tiotropium [place] (Spiriva) 18 Mcg Cap.w.dev 1 INH IH DAILY (Reported) Warfarin Sodium (Warfarin Sodium) 6 Mg Tablet 6 MG PO DAILY (Reported) Warfarin Sodium (Warfarin Sodium) 2 Mg Tablet 8 MG PO DAILY (Reported) As needed Albuterol HFA (Proair HFA) 8.5 Gm Hfa.aer.ad 2 PUFFS INHALATION Q4H PRN PRN For Wheezing (Reported) Albuterol Neb Soln (Albuterol Neb Soln) 2.5 Mg/3 Ml Vial.neb 2.5 MG INHALATION TID PRN PRN For Wheezing (Reported) Nystatin (Nystatin) 20 Applic/15 Gm Oint 1 APPLIC EXTERNAL PRN rash (Reported) Followup Plan Disposition: Home Discharge Diet: Low fat, Low Sodium, Heart Healthy, Diabetic Discharge Activity: Limited until seen by PCP Patient Instructions You were hospitalized to due to acute kidney injury due to right hydronephrosis due to ureteric stone.You were also treated for UTI and completed antibiotics. Urology recommended to continue nonoperative management. Please continue Flomax 0.4 mg daily. Please continue to strain urine. Please take Percocet/ pain medications for pain. Please follow-up with PCP in 3-4 days( or Tuesday) to make sure his kidney function is improving. Initial creatinine on admission 2.11 and creatinine on discharge date 09/20 is 1.29. Continue rest of medications as usual without changes. Follow-up Provider: [facility] Follow-up with PCP in: 1 week Provider: George Peguero MD Follow-up in: 1 week Time spent 40 minutes discussing with urology and coordinating discharge copies to: George Peguero MD; [facility] Krystian Kuhn MD Sep 20, 2016 12:12
--- NOTE | 2016-09-20 12:23 | PCM.PHAPRO ---
Progress Warfarin dosing 16-Timothy 17-Tiomthy 18-Timothy 2.24 2.58 2.91 0.34 0.33 8MG 6 3 mg Bakari Al Pharm.D Sep 20, 2016 12:23
--- NOTE | 2016-09-20 13:31 | NUR ---
Social Work-discharge: Data:EMR Reviewed. Pt is on day 5 of hospitalization for kindey stone obstruction per H&P. Pt is medically stable for discharge. would like GINA to set up PCP appointment at [facility] for this week. UR specialist arranged appointment for Sunday 09/24 at 115 check in. GINA provided RN with this information and she will update pt. Pt uses O2 at baseline through [facility]. Pt's to provide transport home. No other SW needs identified. All updated and agreeable to plan. Assessment:Pt who is independent at baseline. Plan:Pt to discharge home today via POV. No other SW needs identified. All updated and agreeable to plan. HARDEEP Maloney
[2016-09-20 14:22] VITALS: BP 147/92; PULSE 78; RESP 20; O2SAT 97
--- NOTE | 2016-09-20 14:52 | NUR ---
Discharge Pt discharged at this time, VSS, all belongings gathered and returned to pt. IV D/Cd intact, hard copy of new script given to pt to fill. Follow up appt scheduled, pt aware of time, date, place and provider. Discharge packet printed and reviewed with pt. Pt dressed and sitting awaiting ride home. Addendum: 09/20/16 at 1603 by IRASEMA SARAVIA RN Pt taken by FERNANDEZ in wheelchair from [facility] to front entrance to be drive home in private vehicle driven by spouse.
== END 2016-09-20 15:58 | disposition home or self-care (01) | DRG 694 ==
LOC: SED 09:29 → MPC 14:12
PROVIDERS: ADMIT Internal Medicine; ATTEND Internal Medicine
DX: N13.2 Hydronephrosis with renal and ureteral calculous obstruction (principal); J96.11 Chronic respiratory failure with hypoxia; N17.9 Acute kidney failure, unspecified; N18.3 Chronic kidney disease, stage 3 (moderate); Z79.01 Long term (current) use of anticoagulants; Z99.81 Dependence on supplemental oxygen; Z95.1 Presence of aortocoronary bypass graft; Z79.84 Long term (current) use of oral hypoglycemic drugs; Z87.891 Personal history of nicotine dependence; Z85.038 Personal history of other malignant neoplasm of large intestine; R79.1 Abnormal coagulation profile; E11.9 Type 2 diabetes mellitus without complications; J44.9 Chronic obstructive pulmonary disease, unspecified; Z93.2 Ileostomy status; I25.10 Atherosclerotic heart disease of native coronary artery without angina pectoris; I48.91 Unspecified atrial fibrillation

== ENCOUNTER → 2016-10-28 | Day surgery (SDC) | payer MEDICARE, OTHER ==
--- NOTE | 2016-10-22 11:26 | PCM.ANEPRE ---
Anesthesia Pre-Op Review Reason for Review: only cleared for spinal by pulmonology- recent hospitalization Anesthesia Recommendations: Proceed with Procedure Additional Comments 81 YO male for right kidney stone removal and ureteral stent. This patient has paroxysmal A Flutter, Sever COPD and home 02 dependant and has ROMÁN on CPAP and NIDDM. Coumadin last does is 10/18. EF from September 2014 is reported to be 50%. Pt' s pulmonlogist has cleared the patient for SPINAL anesthesia. Will check coags the am of surgery. Anselmo Abraham MD Oct 22, 2016 11:26
[2016-10-28] VITALS (11 sets, daily range): BP systolic 106–143; BP diastolic 53–92; PULSE 48–69; RESP 15–24; O2SAT 99–100
[~2016-10-28] VITALS: Ht 177.8 cm; Wt 84.8 kg
[~2016-10-28] MED LIST changes: +0.9% Sodium Chloride 1,000 ML IV ONE; +ALBU8.5H2 INHALATION; +Albuterol-Ipratropium 3 mL Inhalation Solution NEB PRN; +Belladonna Alk-Opium 60 mg Rectal Suppository RECTAL ONE; -CIPR-231 PO; +Dexamethasone 4 mg/mL Inj IVPUSH PRN; +EPHEDrine Sulfate 50 mg/mL Inj IVPUSH PRN; -HYDR-4003 PO; +HYDROmorphone 1 mg/mL Inj IVPUSH PRN; +Lactated Ringer's 1,000 ML IV ONE; +Lactated Ringer's 1,000 ML IV SCH; +Lactated Ringer's 500 ML IV PRN; +MetoCLOpramide 5 mg/mL 2 mL Inj IVPUSH PRN; +OXYC1TAB24 PO; +Ondansetron 2 mg/mL 2 mL Inj IVPUSH PRN; +Phenylephrine 10,000 mCg/mL Inj IVPUSH PRN; +Phenylephrine/NS 100 mCg/mL 10 mL Syringe IVPUSH ONE; +Propofol 10,000 mCg/mL 20 mL Inj ONE; +TAMS0.4C98 PO; +fentaNYL-PF 50 mCg/mL 2 mL Inj IVPUSH PRN
[2016-10-28 10:21] LABS: INR 0.93 ratio
--- NOTE | 2016-10-28 11:43 | PCM.HPANE ---
Patient Data Date of Service: Oct 28, 2016 Surgeon Admitting Provider: Attending Provider:George Peguero MD Primary Care Physician:Sudhir Garcia DO Other Provider:Luis Daniel Calle Anesthesia Reason for Visit Right Ureteral Calculus, Hydronephrosis Ht/WT & BMI Height (Feet): 5 Height (Inches): 10.00 Weight (Kilograms): 84.8 Body Mass Index 26.00 Allergies Coded Allergies: No Known Drug Allergies (Verified Allergy, Unknown, 10/20/16) Past Anesthesia History Anesthesia History: Denies:: Abnormal Airway, Anesthesia Reactions, Difficult Intubation Diabetes History Hx Diabetes?: Yes (TYPE ii) Type of Diabetes: Type I Glycemic Control: Insulin Dependent Current Bedside Blood Glucose: 98 MRSA MRSA: No Medications Blood Thinner: Coumadin Last Dose Blood Thinner: Oct 18, 2016 Hypertension Medication: Yes Home Meds Incl Beta Palma: Yes (METOPROLOL) Date Beta Palma Taken: Oct 28, 2016 Time Beta Palma Taken: 0630 Active Scripts Tamsulosin (Flomax)0.4 Mg Capsule0.4 Mg PO DAILY #30 CAPSULE Ref 0 Prov:Krystian Kuhn MD 09/20/16 Cholestyramine (Cholestyramine Packet)4 Gm Packet2 Gm PO TID #90 PACKET Ref 0 Prov:Lina Velarde MD 10/03/15 Reported Medications Albuterol HFA (Proair HFA)8.5 Gm Hfa.aer.ad2 Puffs INHALATION Q4H PRN For Wheezing #1 INHALER 09/15/16 Warfarin Sodium 2 Mg Tablet8 Mg PO DAILY 30 Days Ref 0 09/04/16 Budesonide/Formoterol 160-4.5 mcg Inh (Symbicort 160-4.5 mcg Inh)120 Puff Inhaler1 Puff INHALATION BID #1 INHALER Ref 0 09/04/16 Tiotropium [place] (Spiriva)18 Mcg Cap.w.dev1 Inh IH DAILY #1 PKG Ref 0 09/04/16 Calcium/Magnesium/Zinc (Fqzagwp-Grskrnwdy-Xtvd Tablet)1 Each Tablet1 Tablet PO DAILY 09/04/[address] 20 Mg Tablet.dr20 Mg PO QAM 09/04/16 Montelukast 10 Mg [id number] Mg PO DAILY 09/04/16 Glimepiride 4 Mg Tablet0.5 Tablet PO DAILY 09/04/16 Cyanocobalamin (Vitamin B-12) (Vitamin B-12)500 Mcg Lozenge1 Tab PO DAILY 09/04/16 Cholecalciferol (Vitamin D3) (Vitamin D)1,000 Unit Capsule1,000 Units PO DAILY 09/04/16 Ascorbate Calcium (Vitamin C)500 Mg Tablet1,000 Mg PO DAILY 09/04/16 Potassium 99 Mg Tablet1 Tablet PO DAILY 09/04/16 Warfarin Sodium 6 Mg Tablet6 Mg PO DAILY 30 Days 12/08/15 Metoprolol Tartrate 50 Mg [id number] Mg PO DAILY 30 Days Ref 0 12/08/15 Nystatin 20 Applic/15 Gm Oint1 Applic EXTERNAL PRN rash 10/21/15 Multivits-Min/FA/Lycopene/Lut (Centrum Silver Tablet)1 Each Tablet1 Each PO DAILY 09/17/15 Gabapentin 300 Mg [id number] Mg PO TID 09/02/15 Albuterol Neb Soln 2.5 Mg/3 Ml Vial.neb2.5 Mg INHALATION TID PRN For Wheezing Ref 0 09/02/15 Discontinued Reported Medications Primidone 50 Mg [id number] Mg PO HS 30 Days 09/04/16 Discontinued Scripts oxyCODONE-Acetaminophen 5-325 mg 1 Each Tablet1 Tab PO Q4H PRN For Pain #20 TABLET Ref 0 Prov:Krystian Kuhn MD 09/20/16 History History of ENT Problems?: Yes HEENT History: Positive for:: Cataracts (Surgery in both eyes) Dysphagia (only steak) Hearing Problem Denies:: Abnormal Airway Difficult Intubation Sinus Problem Denture Type: Full- Upper Full- Lower Teeth Condition: Missing Teeth Hx of Heart Problems?: Yes Cardiovascular History: Positive for:: Cardiac Surgery (had bypass in 1997) Chest Pain Edema Hypertension Irregular Heartbeat Denies:: AICD Abdominal Aortic Aneurism Atrial Fibrillation Congestive Heart Failure Heart Murmur Pacemaker Rheumatic Fever Thrombophlebitis Valvular Heart Disease Hx of Respiratory Problem?: Yes Respiratory History: Positive for:: Asthma COPD (home O2 dependent) Dyspnea Oxygen Administration (3L bumps up when necessary) Pneumonia (5 years ago ) Use of Inhalers / NEBS Denies:: Chest Surgery Emphysema Hemoptysis Tuberculosis Use of C-PAP Machine Hx Neurologic Problems?: Yes Neurological History: Positive for:: Dizziness (with low blood glucose) Denies:: Alzheimer's Disease CVA Dementia Headaches Parkinson's Disease Seizures Hx of GI Problems?: Yes Other GI Pertinent History: hx of colon cancer- ileostomy in place Hx of Problems?: Yes Genitourinary History: Positive for:: Kidney Stones (left stone current admission problem) Denies:: HX of Hemodialysis Urinary Tract Infection HX of Peritoneal Dialysis: No Male Hx: Positive for:: Testicular Surgery (vasectomy) Denies:: Prostate Problems Scrotal Mass Skin History: Denies:: History Skin Disorders? Pressure Ulcers Hx Musculoskeletal Problems?: Yes Musculoskeletal History: Positive for:: Back Injury (has chronic back pain) Musculoskeletal Trauma Denies:: Joint Replacement Hx of Psycho/Social Problems?: No Psycho Social History: Denies:: Anxiety Bipolar Disorder Hx Depression Suicide Attempt Hx Surgeries?: Yes (Colon CA resection, Ileostomy, bypass,appendix) Hx Any Other Health Problems?: Yes Other History: Positive for:: Cancer (Colon ) Hospitalization Denies:: Endocrine Disease Thyroid Disease History Blood Transfusions: Denies:: Blood Transfuse Reaction Blood Transfusions Hx Diabetes: Yes (TYPE ii)Bedside Blood Glucose: 98 Hx Alcohol Use: NoHx Substance Use: No Smoking Status: Former Smoker Have You Smoked inLast 12 mo: No Stop/Bang Treated for Sleep Apnea?: Yes Do You Have a CPAP Machine?: Yes P-Blood Pressure: treated: Yes B- Body Mass Index > 35 kg/m2: No A- Age over 50: Yes N- Neck Large Circumference: No G- Gender Male: Yes ROMÁN Category 4 OutPt Procedure: Yes Risk Assessment Category Category 1A: Patient has history of documented sleep apnea, and HAS NOT received any narcotic, sedative or anesthesia administration during this stay. Category 1B: Patient has history of documented sleep apnea, and HAS received any narcotic , sedative or anesthesia administration during this stay Category 2: Patient has SUSPECTED Obstructive Sleep Apnea, and HAS received any narcotic , sedative or anesthesia administration during this stay. Category 3: Patient has SUSPECTED Obstructive Sleep Apnea and HAS NOT received narcotic, sedative or anesthesia administration during this stay. Category 4: Outpatient in Procedural Areas with known sleep apnea or who screen positive for High Risk via the STOP/BANG questionnaire. Exam Exam Vital Signs Vital Signs Date Time Temp Pulse Resp B/P Pulse Ox O2 Delivery O2 Flow Rate FiO2 10/28/16 10:59 Supplement Oxygen 10/28/16 10:35 36.3 63 22 143/73 99 Nasal Cannula 3 General Appearance: Alert, Oriented X3, Cooperative HEENT/AIRWAY: MP 2, Neck Movement (Full), Mouth Opening (Wide), Other (full dentures) Lungs: Diminished Heart: Regular Rate/Rhythm, Normal S1, Normal S2 Meds/Labs/Diagnostics Admission Meds Current Medications Lactated Ringer's (Lr) 1,000 ml @ ud STK-MED ONCE IV Last administered on 10/28t 09:45; Start 10/28/16 at 09:45; Stop 10/28/16 at 10:42; Status DC Bedside Blood Glucose: 98 Labs Test 10/28/16 09:55 Prothrombin Time 9.9sec (8.1-12.5) Prothromb Time International Ratio 0.93ratio Activated Partial Thromboplast Time 25.4sec (22.8-33.0) Diagnositcs Pulmonology consult reviewed Plan Impression Patient chart reviewed, patient interviewed and anesthestic plan with risks, benefits, and alternatives discussed, and informed consent obtained. NPO per Anesth. Guidelines: Yes ASA Physical Status: ASA3 Severe Disease Anesthetic Plan: KATHY Bene/Risks/Altern/Consents: Yes HP Complete Prior to Induction: Yes Other High risk for GA, plan Cj Deshpande MD Oct 28, 2016 11:43
[2016-10-28] MEDS: Levofloxacin 500 mg/100 mL D5W IV ONE ×2 (11:49→11:51)
[2016-10-28] MEDS: cefTRIAXone 2,000 mg/D5W 50 mL IV Minibag Plus IV ONE ×4 (11:51→12:03)
--- NOTE | 2016-10-28 13:16 | PCM.SURGPO ---
Immediate Operative Note Date of Surgery: Oct 28, 2016 Pre Operative Diagnosis R ureteral calculus Post Operative Diagnosis Bladder calculi, h/o R ureteral calculus Procedure Cystoscopy, R ureteroscopy (diagnostic), R ureteral stent placement, and extraction of bladder calculi Surgeon and Order Make Up Clerk Surgeon: George Peguero MD Assistants: None Findings Cystoscopy revealed bilobar prostatic hypertrophy, mild-moderately trabeculated bladder, many (>20) yellowish very small (<2mm) bladder calculi, no bladder tumors or lesions, and B/L ureteral orifices in normal position. R semi-rigid ureteroscopy and R flexible ureteroscopy revealed no calculi, lesions, or tumors in R ureter or R renal collecting system. Extraction of bladder calculi was performed. R ureteral stent was placed. Complications There were no periprocedural complications identified. Surgical Specimen Removed: Yes Specimen sent to Pathology: No Surgical Specimen description: Bladder calculi sent to lab for stone analysis Anesthetic Administered: GA Grafts, Implants: Other (26cm x 5F R ureteral JJ stent (no string)) Output, Estimated Blood Loss: <5 Blood Admin during surgery: No Additional information Patient to return to see me in 4-6 days for cystoscopy, stent removal, and post- op visit. George Peguero MD Oct 28, 2016 13:16
--- NOTE | 2016-10-28 13:27 | PCM.DISURG ---
Surgical Discharge Instruction Date of Service Oct 28, 2016 Dates of Hospitalization Date of Hospital Admission Oct 28, 2016 Providers Admitting Physician: George Peguero MD Primary Care Physician: Sudhir Garcia DO Attending Physician: George Peguero MD Discharge Diagnosis Discharge Diagnosis Bladder calculi, h/o R ureteral calculus Post Operative diagnosis Bladder calculi, h/o R ureteral calculus Diet Discharge Diet: No restrictions, Other (Drink at least 10-12 8oz. glasses (3 liters) of fluids per day) Activity Discharge Activity-General: Try not to overdue, No driving while taking narcotic Dressing and Incisional Care Hygiene: May shower Additional Instructions Discharge Instructions Can re-start taking Coumadin/Warfarin on 11/01. Do not take any other blood -thinning medications (including Aspirin, Ibuprofen, Motrin, Advil, Naproxen, Aleve, fish oil, and Vitamin E) for 7 days. Follow Up Plan Follow-up Provider (F9): George Peguero MD Follow-up appointment: Days (4-6 days for cystoscopy, stent removal, and post- op visit) Call your provider for: Fever, Chills, Vomiting, Other (Pain uncontrolled by pain medications) George Peguero MD Oct 28, 2016 13:26
--- NOTE | 2016-10-28 13:56 | PCM.ANEP1 ---
Post Anesthesia PACU Phase 1 Assessment Date of Service: Oct 28, 2016 Vital Signs Vital Signs Date Time Temp Pulse Resp B/P Pulse Ox O2 Delivery O2 Flow Rate FiO2 10/28/16 13:34 60 20 129/66 100 Nasal Cannula 3 10/28/16 13:32 24 100 10/28/16 13:31 36.4 10/28/16 13:30 63 15 112/68 100 Nasal Cannula 3 10/28/16 13:20 63 20 108/62 99 Nasal Cannula 3 10/28/16 13:15 68 19 108/53 99 Nasal Cannula 3 10/28/16 13:10 24 99 10/28/16 13:10 69 18 117/92 100 Simple Mask 7 10/28/16 13:05 126/76 10/28/16 13:04 36.0 106/57 10/28/16 10:59 Supplement Oxygen 10/28/16 10:35 36.3 63 22 143/73 99 Nasal Cannula 3 Anesthetic Administered: SAB Level of Alertness: Awake, talking AGUERO's with Equal Strength: No Pain: No Nausea or Vomiting: No CV Function & Hydration Stable: Yes Airway Device: Oxygen Delivery: Simple Mask Lungs: Diminished Dermatome Level: T12 (Symphysis Pubis) PACU Phase 2 Assessment Complications: No Follow up Care: N/A Patient Instructions Provided: N/A Cj Ferraro MD Oct 28, 2016 13:56
--- NOTE | 2016-10-28 17:03 | DRSVH ---
PROCEDURE: X-RAY RETROGRADE UROGRAPHY INDICATIONS: RIGHT URETRAL STENT PLACEMENT TECHNIQUE: 5 intra-operative images acquired by the Urology service. COMPARISON: [facility], CT, CT KUB, 09/15/2016, 10:20. [facility], CR, XR K UB, 09/27/2016, 9:38. FINDINGS: Exam is limited 5 submitted images. Within these limits, there is partial opacification o f the right renal collecting system which appears mildly prominent within the mid and upper pole. Vi sualized portions of the proximal right ureter appear grossly normal. Ureteral stent was placed. IMPRESSION: 1. Limited exam demonstrating mild fullness of the right renal collecting system were opacified and u reteral stent was placed. Dictated by: Ras Dang RRA Interpreted: Jamaica Deluca MD on 10/28/2016 at 13:57 Approved by: Jamaica Deluca MD, PhD on 10/28/2016 at 17:00
--- NOTE | 2016-10-29 09:51 | OP ---
[address] [address] OPERATIVE REPORT PATIENT: DIAZ YOU : 1935 MR#: [id number] ADMIT: 10/28/2016 JOB ID: [id number] DATE OF SURGERY: 10/28/2016 PREOPERATIVE DIAGNOSIS(ES): Right ureteral calculus. POSTOPERATIVE DIAGNOSIS(ES): 1. Bladder calculi. 2. History of right ureteral calculus. PROCEDURE: 1. Cystoscopy. 2. Right ureteroscopy (diagnostic). 3. Right ureteral stent placement. 4. Extraction of bladder calculi. SURGEON: George Peguero MD. FITNESS ASSISTANT: None. ANESTHESIA: Spinal. ESTIMATED BLOOD LOSS: Less than 5 mL. SPECIMENS: Bladder calculi sent to the Lab for stone analysis. DRAINS: A 26 cm x 5-[place]er right ureteral double-J stent. COMPLICATIONS: None. CONDITION: Stable. FINDINGS: Cystoscopy revealed bilobar prostatic hypertrophy, mild to moderately trabeculated bladder, many (greater than 20) yellowish, very small (less than 2 mm) bladder calculi. No bladder tumors or lesions. Bilateral ureteral orifices in normal position. Right semi-rigid ureteroscopy and right flexible ureteroscopy revealed no calculi, lesions, or tumors in right ureter or right renal collecting system. Extraction of bladder calculi was performed. Right ureteral stent was placed. INDICATIONS: The patient is a 81-year-old male with a right distal ureteral calculus and right hydronephrosis. The patient now presents for cystoscopy, right ureteroscopy, possible basket extraction of calculus, possible holmium laser lithotripsy and right ureteral stent placement. DESCRIPTION OF PROCEDURE: The patient was brought to the operating room and placed supine on the operating room table. The patient was given ceftriaxone and Levaquin IV antibiotics. Sequential compression device boots were placed. Spinal anesthesia was administered. The patient was brought down into dorsal lithotomy position. The patient was prepped and draped in a standard surgical fashion. A 22-[place]er rigid cystoscope was placed into the distal urethra without difficulty. Cystoscopy revealed bilobar prostatic hypertrophy, mild to moderately trabeculated bladder, many (greater than 20) yellowish, very small (less than 2 mm) bladder calculi, no bladder tumors or lesions, and bilateral ureteral orifices in normal position. An angle tip UltraTrack guidewire was passed into the right orifice and passed up the right ureter into the right renal pelvis. Cystoscope was removed from the patient. The guidewire was secured to the drape with a Karoline clamp and a safety wire. A semi-rigid ureteroscope was passed through the urethra and bladder and into the right ureteral orifice with assistance of a PTFE guidewire. Right semi-rigid ureteroscopy revealed no calculi, lesions, or tumors in right distal or right mid ureter. PTFE guidewire was advanced up the right ureter into the right renal pelvis. The semi-rigid ureteroscope was removed from the patient. A flexible ureteroscope was passed over PTFE guidewire through the urethra and bladder and up the right ureter into the right mid ureter. Right flexible ureteroscopy revealed no calculi, lesions, or tumors in the right mid ureter or right proximal ureter. The flexible ureteroscope was advanced up the right ureter, into the right renal collecting system, into the right renal pelvis. The right renal pelvis and all calices were visualized. Right flexible ureteroscopy revealed no calculi, lesions, or tumors in the right renal collecting system. Again, right renal pelvis and right renal calices were visualized. No calculi, lesions, or tumors were seen. A small amount of contrast was instilled into the right renal collecting system to illuminate the right renal collecting system to aid in stent placement. The flexible ureteroscope was backed down the right ureter and the entire right ureter was again visualized, and no calculi, lesions, or tumors were seen in the right ureter. The flexible ureteroscope was removed from the patient. The rigid cystoscope was passed over the safety guidewire through the urethra and into the bladder. A 26 cm x 5-[place] ureteral double J-stent, with the stent string removed prior to stent placement, was passed over the guidewire, through the cystoscope and passed up the right ureter and placed so the proximal pigtail was located in the right renal pelvis and distal pigtail was located in the bladder. The guidewire was removed. Correct positioning of the stent was confirmed both fluoroscopically and under direct visualization using cystoscope. Good efflux of contrast could be seen draining from the distal end of the stent into the bladder, further confirming correct stent positioning. Thus, right ureteral stent was placed. Then, extraction of bladder calculi was performed using the rigid cystoscope. The bladder was irrigated via the rigid cystoscope, and bladder calculi were extracted and removed from the patient via the rigid cystoscope. The bladder calculi were sent to the Lab for stone analysis. Thus, extraction of bladder calculi was performed. The bladder was drained via the cystoscope. The cystoscope was removed from the patient. The skin was cleaned and dried. The patient was placed in the supine position. The patient was transferred to the recovery room in stable condition. The patient tolerated the procedure well. The postop plan is for the patient to return to see me in the office in 4-6 days for cystoscopy, stent removal and postoperative visit. Of note, as no calculus was seen in the right ureter and right renal collecting system and bladder calculi were seen, the right distal ureteral calculus likely passed into the bladder prior to surgery and broke up into very small fragments and these bladder calculi were extracted from the patient.
[2016-11-01 08:11] LABS: Stone Color Orange (.)
== END | disposition home or self-care (01) ==
LOC: SAS 09:29
PROVIDERS: ATTEND Urology
DX: N21.0 Calculus in bladder (principal); N13.2 Hydronephrosis with renal and ureteral calculous obstruction; N40.0 Benign prostatic hyperplasia without lower urinary tract symptoms; R35.1 Nocturia; I25.10 Atherosclerotic heart disease of native coronary artery without angina pectoris; I12.9 Hypertensive chronic kidney disease with stage 1 through stage 4 chronic kidney disease, or unspecified chronic kidney disease; I48.91 Unspecified atrial fibrillation; J44.9 Chronic obstructive pulmonary disease, unspecified; G47.33 Obstructive sleep apnea (adult) (pediatric); E11.22 Type 2 diabetes mellitus with diabetic chronic kidney disease; N18.3 Chronic kidney disease, stage 3 (moderate); Z93.2 Ileostomy status; Z79.01 Long term (current) use of anticoagulants; Z95.1 Presence of aortocoronary bypass graft; Z90.49 Acquired absence of other specified parts of digestive tract; Z85.038 Personal history of other malignant neoplasm of large intestine; Z79.84 Long term (current) use of oral hypoglycemic drugs; Z87.891 Personal history of nicotine dependence; Z79.4 Long term (current) use of insulin; Z87.442 Personal history of urinary calculi
CPT/HCPCS: 36415; 52332; 74420; 82360; 85610; 85730; C2617; J0696; J2370; J7030; J7120; Q9967